=== PATIENT | female | born 1965 | race Caucasian/White ===

== ENCOUNTER 2018-06-24 06:14 | Inpatient (IN) ==
[2018-06-24] MEDS ORDERED: Estrogens Congugated Vag Cream w/app 30 GM Tube VAGINAL ONE (07:13)
[2018-06-24] MEDS ORDERED: Metoprolol Tartrate 25 MG Tablet PO SCH (07:30)
[2018-06-24] MEDS ORDERED: Sodium Chlor 0.9% Inj 500 ML IV.CONT PRN (07:30)
[2018-06-24] MEDS ORDERED: Bupivacaine/Epinephrine Inj 0.25% 50 ML Vial ONE (07:54)
[2018-06-24] MEDS ORDERED: Chlorhexidine Gluconate 2% 1 Pack (2 Cloths) TOPICAL ONE (08:00)
[2018-06-24] MEDS ORDERED: Phenylephrine/NS 1000 MCG/10ML Syringe IV.PUSH ONE (08:02)
[2018-06-24] MEDS ORDERED: Glycopyrrolate Inj 1 MG/5 ML Syringe IV.PUSH ONE (08:02)
[2018-06-24] MEDS ORDERED: Lidocaine PF 1% Inj 5 ML Syringe OTHER ONE (08:02)
[2018-06-24] MEDS ORDERED: Neostigmine Inj 5 MG/5 ML Syringe IV.PUSH ONE (08:02)
[2018-06-24] MEDS ORDERED: ceFAZolin 1 GM Premix Inj 1 GM/50 ML FROZ.PIGGY IV.SIG ONE (08:08)
[2018-06-24] MEDS ORDERED: HYDROmorphone PF Inj 2 MG/ML Vial ONE (09:12)
[2018-06-24] MEDS ORDERED: fentaNYL Citrate Inj 100 MCG/2 ML Ampul ONE (10:50)
[2018-06-24] MEDS ORDERED: Promethazine 25 MG Supp RECTAL PRN (11:16)
[2018-06-24] MEDS ORDERED: oxyCODONE/Acetaminophen 10/325 Tablet PO PRN (11:16)
--- NOTE | 2018-06-24 11:40 | P.OP ---
- Preoperative Diagnosis (1) Dyspareunia due to medical condition in female (2) Fibroid uterus (3) Menorrhagia with irregular cycle (4) Right lower quadrant abdominal pain - Postoperative Diagnosis (1) Endometriosis determined by laparoscopy (2) Dyspareunia due to medical condition in female (3) Fibroid uterus (4) Menorrhagia with irregular cycle (5) Right lower quadrant abdominal pain Postoperative Diagnosis: Pelvic adhesions of the colon to the posterior vaginal and cervical wall Date of procedure: 06/24/18 Procedure: Exam under anesthesia Laparoscopic examination Total abdominal hysterectomy bilateral salpingectomy Lysis of adhesions Coagulation of endometriosis Aspiration of right ovarian cyst Suspension of ovaries bilaterally Anesthesia: GETA Surgeon: Giuseppe Mason MD Estimated blood loss (mL): 250 Operation and Findings: Counts were correct Findings examination under anesthesia revealed a markedly enlarged uterus 16 weeks size freely mobile and very irregular Laparoscopic exam revealed a huge fibroid uterus with multiple fibroids. Some endometriosis in the posterior cul-de-sac and the colon was firmly adhesed to the posterior vaginal and cervical wall. Unable to visualize the uterine vessels due to the multiple fibroids. The tubes were normal in length and caliber the ovaries looked normal. Careful inspection of the right lower quadrant revealed No etiology for the right lower quadrant pain. There was a small right ovarian cyst 1 cm which was aspirated the left ovary was Normal. The GI system looks normal there was some scarring of the liver and the gallbladder looks normal. Procedure in detail Patient was taken to the operating theater and identified by name band and verbally she was given a general anesthetic placed in dorsal lithotomy position her arms were tucked and she was prepped and draped for laparoscopic surgery. A timeout was taken and we proceeded with an examination under anesthesia. Then an insertion of the Fisher catheter. A weighted speculum was placed in the vagina the anterior lip of the cervix was grasped with a single-tooth tenaculum the Hulka clamp was placed and attention was turned to the umbilical area. There were 2 subumbilical incisions and the uterus was large. I felt the uterus was enlarged because of possible scar tissue adhesion into the anterior abdominal wall therefore we can attempt to do this laparoscopically. The supra umbilical incision was made and with a 5 mm trocar the abdomen was entered without incident. A pneumoperitoneum was created with 3 L of CO2 the entire pelvis and abdomen were carefully inspected. Due to the endometriosis the scar tissue of the colon to the posterior vaginal cervical area and the inability to clearly visualize the uterine vessels due to the fibroids and the large size of the uterus we decided to proceed with laparotomy. The patient was taken out of dorsal lithotomy position reprepped and draped and the old Pfannenstiel incision which was quite low was removed the incision was taken down into the fascia was seen and small bleeders were coagulated with the Bovie once the fascia was taken down we opened the abdomen under direct vision and the air was released the incision was extended with care to avoid the urinary bladder. The round ligaments were then taken with 0 Vicryl pop offs. And the uterus was clamped along the broad ligaments the beginning of the bladder flap was created at this time the broad ligaments were taken down with a Nayely clamp in a clamp cut tie technique until the uterine vessels were obtained at the level of the internal cervical loss these were skeletonized and then the uterine vessels were taken with Amandeep clamps doubly tied stasis was excellent the cardinal ligament was then identified and the bladder was pushed out of harm's way again there is quite a bit of oozing at this point we used some chromic 3 to tie off these small bleeders that were on the bladder. Once this was accomplished and the bladder was out of harm's way we took down the cardinal ligament taking small bites with Jb's clamps. At this point the large bowel was firmly adhesed to the posterior cervical area and this was taken down by sharp dissection being very careful not to injure the bowel. Once we attained the vagina the vagina was sharply incised and the specimen was removed using Kam scissors. Awad sutures were placed at the lateral edges of the cuff and the cuff was closed using 0 Vicryl pop offs in a [id number] fashion. There was some more bleeding on the left side from the bladder and we placed another stitch with 3-0 chromic with excellent results. We consulted Dr. Serg Louis to come in and look at the bowel I felt it was okay but I wanted a general surgeon just to look at it he said it looked fine. At this point we removed the fallopian tubes being careful to stay far away from the ovary as possible then the ovaries were hanging quite low because they had been stretched because of the fibroid uterus we suspended the ovaries bilaterally with a 3-0 Vicryl to the pelvic sidewalls with excellent results at this point there was some oozing in the posterior cul-de-sac and anterior cul-de-sac and we used some Cici to stop the oozing once this had been accomplished with applied pressure for a few minutes and hemostasis was excellent. At this time we removed the self-retaining retractor and the lap pad and we reapproximated the rectus muscles with 0 Vicryl in a running fashion the fascia was repaired with 0 Vicryl from lateral to midline bilaterally in a running fashion and the subcu was repaired with a 3-0 Vicryl and the skin was repaired with a 4-0 Monocryl in a subcuticular manner pressure direct dressing was applied she tolerated the procedure well and went to the recovery room in good condition
[2018-06-24] MEDS ORDERED: Morphine Inj 4 MG/ML Vial ONE (11:42)
[2018-06-24] MEDS ORDERED: *morphine SULFATE 4 MG/ML PERIprocedure ONLY ONE ×2 (11:49→12:20)
[2018-06-24] MEDS ORDERED: *Ondansetron Inj 4 MG/2 ML Vial PERIprocedural Use ONLY ONE (11:59)
[2018-06-24] MEDS ORDERED: HYDROmorphone PF Inj 1 MG/ML Ampul ONE (12:43)
[2018-06-24] MEDS ORDERED: *HYDROmorphone PF Inj 1 MG/ML Ampul PERIprocedural Use ONLY ONE (13:13)
[2018-06-24] MEDS ORDERED: RIZATRIPTAN 10 MG PO PRN (13:30)
[2018-06-24] MEDS ORDERED: [UNRECOGNIZED DRUG - OTHER] PO PRN (13:30)
[2018-06-24] MEDS ORDERED: Naloxone Inj 0.4 MG/ML Vial IV.PUSH PRN (15:05)
[2018-06-24] MEDS ORDERED: HYDROmorphone PF Inj 1 MG/ML Ampul IV.PUSH ONE (15:15)
[2018-06-24] MEDS: Dicyclomine 10 MG Capsule PO SCH ×3 (15:17→21:57)
[2018-06-24] MEDS: HYDROmorphone PCA Inj 6 MG/30 ML PCA.VIAL PCA PRN (15:36)
[2018-06-24] MEDS ORDERED: Zolpidem Tartrate 5 MG Tablet PO PRN (21:00)
[2018-06-25 05:50] LABS: Baso % (Auto) 0.1 % (0.0-2.0); Eos % (Auto) 0.1 % (0.0-4.0); Hematocrit 23.6 % (35.0-46.0); Lymph # (Auto) 1.2 th/mm3 (1.0-4.8); Lymph % (Auto) 11.6 % (9.0-44.0); Mean Corpuscular Hemoglobin 29.2 pg (27.0-34.0); Mean Corpuscular Volume 85.8 fL (80.0-100.0); Mean Platelet Volume 7.1 fL (7.0-11.0); Mono % (Auto) 9.7 % (0.0-8.0); Neut # (Auto) 8.3 th/mm3 (1.8-7.7); Neut % (Auto) 78.5 % (16.0-70.0); Platelet Count 172 th/mm3 (150-450); Red Blood Count 2.75 mil/mm3 (4.00-5.30); Red Cell Distribution Width 13.3 % (11.6-17.2); White Blood Count 10.6 th/mm3 (4.0-11.0)
[2018-06-25 06:09] LABS: Glomerular Filtration Rate Greater Than 89 mL/min (>89); Potassium 3.8 meq/L (3.5-5.1)
[2018-06-25] MEDS: HYDROmorphone PCA Inj 6 MG/30 ML PCA.VIAL PCA PRN (06:38)
[2018-06-25] MEDS: Dicyclomine 10 MG Capsule PO SCH ×4 (08:07→20:32)
--- NOTE | 2018-06-25 10:28 | P.PNOB ---
Assessment and Plan (1) S/P LIZ-BSO Status: Acute Assessment and plan: POD #1 pt didn't sleep well last night, conflict with ordered medication this is now resolved, rest encouraged pt's BP low last night but was asymptomatic therefore has been reluctant to use product grader as ordered, pt encouraged that she should use it to managed pain c/o nausea this am, Phenergan ordered with sips of fluid incentive spirometer encouraged pt encouraged to ambulate within the room routine PO care - Postoperative Procedures Operation Date: 06/24/18 08:02 Actual Procedures Side Surgeon p TOTAL ABDOMINAL HYSTERECTOMY WITH BILATERAL SALPINGECTOMY, LYSIS OF ADHESION, COAGULATION OF ENDOMETRIOSIS, SUSPENSION OF OVARIES, ASPIRATION OF RIGHT OVARIAN CYST Bilateral Giuseppe Crockett MD s LAPAROSCOPIC EXAM Giuseppe Crockett MD Postoperative day: 1 Postoperative status: marginal pain control Postoperative plan: routine post-op care - Time Spent With Patient Total time spent is greater than 50% in coordination of care (as documented) at patient's floor/unit and/or counseling patient: less than 15 minutes Subjective Subjective: patient reports nausea, pain not well controlled Physical Exam Vital signs: Temp Pulse Resp BP Pulse Ox 98 F 80 16 104/66 99 06/25/18 08:00 06/25/18 08:00 06/25/18 08:06 06/25/18 08:00 06/25/18 08:00 - Constitutional mild distress Comments: pt painful not using product grader as directed, concerned her bp was too low - Routine Respiratory Exam Present: CTA bilaterally - Routine Abdominal Exam Present: soft, normoactive bowel sounds, tenderness Comments: dressing CDI - Detailed Neurological Exam: Coma Scale Eye Opening: Spontaneous Verbal Response: Oriented (clear urine) - Additional findings exam by dr crockett - Urinary Catheter Management Indwelling Urethral Catheter Cath placed during this visit: yes Urethral indwelling: Yes Reason for Continuing: Other continuation reason (due to nature of surgery) Insertion date: 06/24/18 Insertion time: 08:48 Results - Labs CBC & Chem 7: 06/25/18 05:04 06/25/18 05:04 Labs: Laboratory Results - last 24 hr 06/25/18 06/25/18 05:04 05:04 WBC 10.6 RBC 2.75 L Hgb 8.0 L Hct 23.6 L MCV 85.8 MCH 29.2 MCHC 34.0 RDW 13.3 Plt Count 172 D MPV 7.1 Neut % (Auto) 78.5 H Lymph % (Auto) 11.6 Gaines % (Auto) 9.7 H Eos % (Auto) 0.1 Baso % (Auto) 0.1 Neut # (Auto) 8.3 H Lymph # (Auto) 1.2 Gaines # (Auto) 1.0 H Eos # (Auto) 0.0 Baso # (Auto) 0.0 WBC Differential . Differential Comment Auto diff final Potassium 3.8 Creatinine 0.41 L Estimated GFR Greater than 89
[2018-06-25] MEDS: Butalbital/APAP/Caff 50/325/40 MG Tablet PO PRN ×2 (12:29→18:41)
[2018-06-25] MEDS: Ibuprofen 600 MG Tablet PO PRN (18:26)
[2018-06-25] MEDS: Temazepam 15 MG Capsule PO SCH (21:40)
[2018-06-26] MEDS: Ibuprofen 600 MG Tablet PO PRN ×2 (00:28→08:49)
[2018-06-26] MEDS: Dicyclomine 10 MG Capsule PO SCH ×4 (08:46→21:58)
[2018-06-26] MEDS ORDERED: Morphine Sulfate Inj 2 MG/ML Vial IV.PUSH STA (09:15)
[2018-06-26] MEDS: Morphine Sulfate Inj 2 MG/ML Vial IV.PUSH PRN ×2 (11:42→14:15)
[2018-06-26] MEDS: Butalbital/APAP/Caff 50/325/40 MG Tablet PO PRN ×2 (11:46→18:36)
--- NOTE | 2018-06-26 14:56 | P.PNOB ---
Assessment and Plan - Postoperative Procedures Operation Date: 06/24/18 08:02 Actual Procedures Side Surgeon p TOTAL ABDOMINAL HYSTERECTOMY WITH BILATERAL SALPINGECTOMY, LYSIS OF ADHESION, COAGULATION OF ENDOMETRIOSIS, SUSPENSION OF OVARIES, ASPIRATION OF RIGHT OVARIAN CYST Bilateral Giuseppe Mason MD s LAPAROSCOPIC EXAM Giuseppe Mason MD POD #2 Severe anemia due to blood loss in surgery. Will check H/H in the am. Will start some venofer Migrane headache. Will give some IV meds now and hold off on po as she is quite nauseated. Dehydration as she is so nauseated unable to tolerate po fluids. will start some IV fluids. - Time Spent With Patient Total time spent is greater than 50% in coordination of care (as documented) at patient's floor/unit and/or counseling patient: Subjective Interval history: Doing ok, Having a migrane this am. Now with nausea due to severe headache. Taking pain meds positive flatus. Physical Exam Vital signs: Temp Pulse Resp BP Pulse Ox 98.7 F 92 H 16 106/60 95 06/26/18 11:40 06/26/18 11:40 06/26/18 11:40 06/26/18 11:40 06/26/18 11:40 - Constitutional mild distress - Routine Respiratory Exam Present: CTA bilaterally - Routine Cardiovascular Exam Present: RRR, S1, S2 - Routine Abdominal Exam Present: soft, tenderness - Urinary Catheter Management Indwelling Urethral Catheter Cath placed during this visit: yes, but has since been removed by the nurse Urethral indwelling: No Insertion date: 06/24/18 Insertion time: 08:48 Removal date: 06/25/18 Removal time: 14:00 Results - Labs CBC & Chem 7: 06/25/18 05:04 06/25/18 05:04
[2018-06-26] MEDS: Iron Sucrose Inj 200 MG in Sodium Chlor 0.9% Inj 100 ML IV.SIG SCH (17:08)
[2018-06-26] MEDS: Temazepam 15 MG Capsule PO SCH (21:58)
[2018-06-27] MEDS: RIZATRIPTAN 10 MG PO PRN ×2 (04:03→19:38)
[2018-06-27] MEDS: [UNRECOGNIZED DRUG - OTHER] PO PRN ×2 (04:03→19:38)
[2018-06-27 06:36] LABS: Baso % (Auto) 0.4 % (0.0-2.0); Eos # (Auto) 0.1 th/mm3 (0.0-0.4); Eos % (Auto) 1.2 % (0.0-4.0); Hematocrit 21.2 % (35.0-46.0); Hemoglobin 7.2 gm/dL (11.6-15.3); Lymph # (Auto) 1.3 th/mm3 (1.0-4.8); Lymph % (Auto) 19.7 % (9.0-44.0); Mean Corpuscular HGB Conc 33.8 % (32.0-36.0); Mean Corpuscular Hemoglobin 29.2 pg (27.0-34.0); Mean Corpuscular Volume 86.4 fL (80.0-100.0); Mean Platelet Volume 6.6 fL (7.0-11.0); Mono # (Auto) 0.7 th/mm3 (0.0-0.9); Mono % (Auto) 10.1 % (0.0-8.0); Neut # (Auto) 4.6 th/mm3 (1.8-7.7); Neut % (Auto) 68.6 % (16.0-70.0); Platelet Count 160 th/mm3 (150-450); Red Blood Count 2.46 mil/mm3 (4.00-5.30); Red Cell Distribution Width 12.8 % (11.6-17.2); White Blood Count 6.7 th/mm3 (4.0-11.0)
[2018-06-27] MEDS: Dicyclomine 10 MG Capsule PO SCH ×4 (11:03→21:39)
--- NOTE | 2018-06-27 14:13 | P.PNOB ---
Assessment and Plan - Postoperative Procedures Operation Date: 06/24/18 08:02 Actual Procedures Side Surgeon p TOTAL ABDOMINAL HYSTERECTOMY WITH BILATERAL SALPINGECTOMY, LYSIS OF ADHESION, COAGULATION OF ENDOMETRIOSIS, SUSPENSION OF OVARIES, ASPIRATION OF RIGHT OVARIAN CYST Bilateral Giuseppe Mason MD s LAPAROSCOPIC EXAM Giuseppe Mason MD POD #3 Severe anemia will continue venofer and check her cbc in the am she is not ready for discharge. Will consider d/c in the am Migrane headache she will continue the meds from home since we do not carry it here. - Time Spent With Patient Total time spent is greater than 50% in coordination of care (as documented) at patient's floor/unit and/or counseling patient: Subjective Subjective: patient reports feeling better, patient has no complaints, pain is well controlled, patient is tolerating oral intake (doiong better today, headache is better but still feeling wimpy.) Physical Exam Vital signs: Temp Pulse Resp BP Pulse Ox 98.7 F 83 18 114/56 L 97 06/27/18 12:25 06/27/18 12:25 06/27/18 12:25 06/27/18 12:25 06/27/18 12:25 - Constitutional no acute distress - Routine Respiratory Exam Present: CTA bilaterally - Routine Cardiovascular Exam Present: RRR, S1, S2 - Routine Abdominal Exam Present: soft, normoactive bowel sounds Comments: surgically tender over the incision - Urinary Catheter Management Indwelling Urethral Catheter Cath placed during this visit: yes, but has since been removed by the nurse Urethral indwelling: No Insertion date: 06/24/18 Insertion time: 08:48 Removal date: 06/25/18 Removal time: 14:00 Results - Labs CBC & Chem 7: 06/27/18 06:05 06/25/18 05:04 Labs: Laboratory Results - last 24 hr 06/27/18 06:05 WBC 6.7 RBC 2.46 L Hgb 7.2 L Hct 21.2 L MCV 86.4 MCH 29.2 MCHC 33.8 RDW 12.8 Plt Count 160 MPV 6.6 L Neut % (Auto) 68.6 Lymph % (Auto) 19.7 Josephine % (Auto) 10.1 H Eos % (Auto) 1.2 Baso % (Auto) 0.4 Neut # (Auto) 4.6 Lymph # (Auto) 1.3 Josephine # (Auto) 0.7 Eos # (Auto) 0.1 Baso # (Auto) 0.0 WBC Differential . Differential Comment Auto diff final
[2018-06-27] MEDS: Iron Sucrose Inj 200 MG in Sodium Chlor 0.9% Inj 100 ML IV.SIG SCH (15:15)
[2018-06-27] MEDS: Butalbital/APAP/Caff 50/325/40 MG Tablet PO PRN (19:27)
[2018-06-27] MEDS: Temazepam 15 MG Capsule PO SCH (21:38)
[2018-06-28 03:12] VITALS: O2SAT 94
[2018-06-28 06:13] LABS: Hematocrit 21.1 % (35.0-46.0); Hemoglobin 7.2 gm/dL (11.6-15.3); Mean Corpuscular HGB Conc 34.1 % (32.0-36.0); Mean Corpuscular Hemoglobin 29.2 pg (27.0-34.0); Mean Corpuscular Volume 85.6 fL (80.0-100.0); Mean Platelet Volume 6.1 fL (7.0-11.0); Platelet Count 160 th/mm3 (150-450); Red Blood Count 2.46 mil/mm3 (4.00-5.30); Red Cell Distribution Width 13.1 % (11.6-17.2); White Blood Count 5.3 th/mm3 (4.0-11.0)
[2018-06-28] MEDS: RIZATRIPTAN 10 MG PO PRN ×2 (10:17→12:40)
[2018-06-28] MEDS: [UNRECOGNIZED DRUG - OTHER] PO PRN ×2 (10:17→12:40)
[2018-06-28 11:11] VITALS: RESP 16
[2018-06-28] MEDS: Dicyclomine 10 MG Capsule PO SCH ×2 (11:36→15:40)
--- NOTE | 2018-06-28 12:36 | P.PNOB ---
Assessment and Plan - Postoperative Procedures Operation Date: 06/24/18 08:02 Actual Procedures Side Surgeon p TOTAL ABDOMINAL HYSTERECTOMY WITH BILATERAL SALPINGECTOMY, LYSIS OF ADHESION, COAGULATION OF ENDOMETRIOSIS, SUSPENSION OF OVARIES, ASPIRATION OF RIGHT OVARIAN CYST Bilateral Giuseppe Mason MD s LAPAROSCOPIC EXAM Giuseppe Mason MD POD #4 Migrane headaches.. discussed the possibility of blood transfusion in detail Severe anemia due to acute blood loss. The H/H is stable and she is not bleeding. She has had her venofer and will check her cbc later. Tongue is very tender will try some oragel to see if that would help. The magic mouthwash has not been effective in the past. - Time Spent With Patient Total time spent is greater than 50% in coordination of care (as documented) at patient's floor/unit and/or counseling patient: Subjective Interval history: Doing ok, Having a migrane this am. Now with a headache. Taking pain meds positive flatus. No chest pain or pressure. No SOB. My tongue is on fire. This happened before and my doctor and dentist sent me to numerous doctors and no one could figure it out. I have to be careful what I eat or it will really hurt. I'm ok to go home. Subjective: patient reports feeling better, pain is well controlled, patient is tolerating oral intake, flatus Physical Exam Vital signs: Temp Pulse Resp BP Pulse Ox 98 F 94 H 16 120/66 94 L 06/28/18 11:10 06/28/18 11:10 06/28/18 11:10 06/28/18 11:10 06/28/18 07:59 - Constitutional no acute distress - Routine Respiratory Exam Present: CTA bilaterally - Routine Cardiovascular Exam Present: RRR, S1, S2 - Routine Abdominal Exam Present: soft, normoactive bowel sounds - Urinary Catheter Management Indwelling Urethral Catheter Cath placed during this visit: yes, but has since been removed by the nurse Urethral indwelling: No Insertion date: 06/24/18 Insertion time: 08:48 Removal date: 06/25/18 Removal time: 14:00 Results - Labs CBC & Chem 7: 06/28/18 06:10 06/25/18 05:04 Labs: Laboratory Results - last 24 hr 06/28/18 06:10 WBC 5.3 RBC 2.46 L Hgb 7.2 L Hct 21.1 L MCV 85.6 MCH 29.2 MCHC 34.1 RDW 13.1 Plt Count 160 MPV 6.1 L
[2018-06-28] MEDS ORDERED: Iron Sucrose Inj 200 MG in Sodium Chlor 0.9% Inj 100 ML IV.SIG SCH (14:00)
[2018-06-28] MEDS: Iron Sucrose Inj 200 MG in Sodium Chlor 0.9% Inj 100 ML IV.SIG SCH (15:03)
[2018-06-28 15:46] VITALS: BP 121/63; PULSE 88; TEMP 98.9
== END 2018-06-28 16:25 | disposition home or self-care (01) ==
LOC: HSDI 06:14 → H1EA 14:22
PROVIDERS: ADMIT Obstetrics & Gynecology; ATTEND Obstetrics & Gynecology

== ENCOUNTER 2018-07-05 10:33 | Observation (INO) ==
[2018-07-05] MEDS ORDERED: Sod Chloride 0.9% Inj 1,000 ML IV.CONT SCH (11:00)
--- NOTE | 2018-07-05 11:01 | ED ---
HPI General Chief complaint: MOLDING TECHNICIAN Stated complaint: vaginal bleeding Time Seen by Provider: 07/05/18 10:40 Source: patient Mode of arrival: ambulatory Limitations: no limitations History of Present Illness HPI Narrative: The patient is a 53-year-old female who presents to the emergency department for vaginal bleeding. The patient is status post total abdominal hysterectomy sparing the ovaries, performed on June 21, 2018 by her gynecologic surgeon, Dr. Mason. The patient states she had her uterus removed secondary to enlarged fibroids, dyspareunia, and vaginal bleeding. The patient states the fibroid was too large to go transvaginal and laparoscopically , therefore, she had a transverse lower abdominal incision performed to remove the uterus. The patient does note a small amount of light vaginal bleeding since the surgery, approximately 6 pads per day. However, the patient developed lower abdominal cramping last night and significant increase of bleeding this morning. The patient states this morning slightly after 5 AM she noticed the passage of a large blood clot via the vagina. She then had several more episodes of passing large blood clots and increasing vaginal bleeding. The patient spoke with the on-call physician for her engineering technician parking who advised her to come to the emergency department. The patient does have a history of anemia, hemoglobin was 7.2 prior to surgery, she received iron infusions but no packed red blood cells. She denies any significant abdominal pain currently, but does note the vaginal bleeding has progressed. MD Complaint: Reports vaginal bleeding Onset (ago): day(s) Location: Reports suprapubic Female Urogenital Radiation: Reports Non-Radiating Severity: moderate Severity scale (1-10): 6 Quality: Cramping Duration: intermittent Relieving factors: none Exacerbating factors: other Vaginal discharge: Reports dark blood and blood clots Patient : No Associated symptoms: Reports abdominal pain Related Data Home Medications Medication Instructions Recorded Confirmed sslofabcza-psjakbcrdv-sfl-cod 2 cap PO Q4H PRN 06/17/18 07/05/18 dicyclomine 10 mg PO QID 06/17/18 07/05/18 rizatriptan 10 mg PO Q2-4H PRN 06/17/18 07/05/18 temazepam 1 cap PO HS 06/17/18 07/05/18 Allergies Allergy/AdvReac Type Severity Reaction Status Date / Time No Known Allergies Allergy Verified 11/04/18 10:49 Review of Systems ROS: all other systems reviewed are negative [facility] Social History Social History Second Hand Smoke Exposure: No Smoking Status: Never smoker How Often Do You Have a Drink Containing Alcohol: 2 to 4 times a month Recent Travel in [facility] within the Last 8 Weeks: No Recent Out of Country Travel within the Last 8 Weeks: No Immunization History Tetanus Immunization: Unsure Exam Narrative Exam Narrative: GENERAL: Awake, alert, pleasant 53-year-old female who appears her stated age and is in no acute respiratory distress. SKIN: Focused skin assessment warm/dry. HEAD: Atraumatic. Normocephalic. EYES: Pupils equal and round. No scleral icterus. No injection or drainage. ENT: No nasal bleeding or discharge. Mucous membranes pink and moist. NECK: Trachea midline. No JVD. CARDIOVASCULAR: Regular, tachycardic with a heart rate of 110. RESPIRATORY: No accessory muscle use. Clear to auscultation. Breath sounds equal bilaterally. GASTROINTESTINAL: Abdomen soft, healing lower abdominal transverse scar with no visible bleeding or drainage. No guarding or rigidity. No distention noted. Pelvic: The exam was performed in the presence of a female nurse. External examination reveals blood at the introitus. Speculum examination reveals several large blood clots in the vaginal vault which were removed with Krista forceps and rm swabs. Krista forceps with 4 x 4's was then used to take the blood off of the vaginal dejesus. There appeared to be some venous type bleeding from the 3 o'clock position of the vaginal vault as well as small amount of bleeding at the central area in the posterior cuff. MUSCULOSKELETAL: No obvious deformities. No clubbing. No cyanosis. No edema. NEUROLOGICAL: Awake and alert. No obvious cranial nerve deficits. Motor grossly within normal limits. Normal speech. PSYCHIATRIC: Appropriate mood and affect; insight and judgment normal. Course Initial Documented Vital Signs Temperature 98.1 F 07/05/18 10:35 Pulse Rate 113 H 07/05/18 10:35 Respiratory Rate 16 07/05/18 10:35 Blood Pressure 121/83 07/05/18 10:35 Pulse Oximetry 100 07/05/18 10:35 Last Documented Vital Signs Temperature 98.1 F 07/05/18 10:35 Pulse Rate 87 07/05/18 12:56 Respiratory Rate 18 07/05/18 12:56 Blood Pressure 101/58 L 07/05/18 12:56 Pulse Oximetry 97 07/05/18 12:56 Medical Decision Making MDM Narrative Medical decision making narrative: IV was established, labs are drawn and sent, and the patient was placed on cardiac telemetry monitoring and continuous pulse oximetry monitoring. Type and screen was performed, CBC was sent to lab. A pelvic exam was completed in the presence of a female nurse. Pelvic exam does reveal small amount of bleeding from the 3 o'clock position of the vaginal vault. Several clots were removed with Rm swabs and Krista forceps. It appeared to be venous type oozing, there is no obvious arterial pulsations. There also was a small amount of bleeding in the central area of the cough, but no significant oozing was noted from that position. I discussed the patient with the on-call engineering technician parking for Dr. Mason, Dr. Mansfield, who request that the in-house MUSIC INDUSTRY INTERN physician evaluate the patient. I discussed the patient with Dr. Del Valle who will evaluate the patient in the emergency department. Medical Screen Exam Complete: Yes Emergency Medical Condition: Yes Differential Diagnosis Differential Diagnosis: Differential diagnosis includes postoperative bleeding, hemorrhagic shock, symptomatic anemia, postoperative hematoma, postoperative complication. Lab Data Result diagrams: 07/05/18 11:03 07/05/18 11:03 Lab Results 07/05/18 07/05/18 07/05/18 Range/Units 11:03 11:03 11:03 WBC 10.3 (4.0-11.0) th/mm3 RBC 3.69 L (4.00-5.30) mil/mm3 Hgb 11.1 L (11.6-15.3) gm/dL Hct 32.5 L (35.0-46.0) % MCV 88.0 (80.0-100.0) fL MCH 30.1 (27.0-34.0) pg MCHC 34.1 (32.0-36.0) % RDW 14.2 (11.6-17.2) % Plt Count 349 D (150-450) th/mm3 MPV 6.0 L (7.0-11.0) fL Neut % (Auto) 80.2 H (16.0-70.0) % Lymph % (Auto) 13.2 (9.0-44.0) % [place] % (Auto) 6.0 (0.0-8.0) % Eos % (Auto) 0.3 (0.0-4.0) % Baso % (Auto) 0.3 (0.0-2.0) % Neut # (Auto) 8.2 H (1.8-7.7) th/mm3 Lymph # (Auto) 1.4 (1.0-4.8) th/mm3 [place] # (Auto) 0.6 (0.0-0.9) th/mm3 Eos # (Auto) 0.0 (0.0-0.4) th/mm3 Baso # (Auto) 0.0 (0.0-0.2) th/mm3 WBC Differential . Differential Comment Auto diff final PT 10.6 (9.8-11.6) sec INR 1.0 Ratio APTT 26.4 (23.4-31.7) sec Sodium (136-145) meq/L Potassium (3.5-5.1) meq/L Chloride (98-107) meq/L Carbon Dioxide (21.0-32.0) meq/L Anion Gap (5-15) meq/L BUN (7-18) mg/dL Creatinine (0.50-1.00) mg/dL Estimated GFR (>89) mL/min Random Glucose (74-106) mg/dL Calcium (8.5-10.1) mg/dL Magnesium (1.5-2.5) mg/dL Total Bilirubin (0.2-1.0) mg/dL AST (15-37) U/L ALT (10-53) U/L Alkaline Phosphatase (45-117) U/L Total Protein (6.4-8.2) g/dL Albumin (3.4-5.0) g/dL Urine Color (Yellw/Straw) Urine Clarity (Clear) Urine pH (5.0-8.5) Ur Specific [place] (1.002-1.035) Urine Protein (Neg-Trace) mg/dL Urine Glucose (UA) (Negative) mg/dL Urine Ketones (Negative) mg/dL Urine Occult Blood (Negative) Urine Nitrate (Negative) Urine Bilirubin (Negative) Urine Urobilinogen (Less than 2) mg/dL Ur Leukocyte Esterase (Negative) Urine RBC (0-3) /hpf Urine WBC (0-5) /hpf Urine Bacteria (None) /hpf Urine Mucus (Occasional) /lpf Micro UA Comment Ur Microscopic Review Urine Culture Comments Blood Type O Positive Blood Type Recheck Not needed Antibody Screen Positive H Antibody Identification MTS Gel Crossmatch See Detail 07/05/18 07/05/18 07/05/18 Range/Units 11:03 11:09 12:46 WBC (4.0-11.0) th/mm3 RBC (4.00-5.30) mil/mm3 Hgb (11.6-15.3) gm/dL Hct (35.0-46.0) % MCV (80.0-100.0) fL MCH (27.0-34.0) pg MCHC (32.0-36.0) % RDW (11.6-17.2) % Plt Count (150-450) th/mm3 MPV (7.0-11.0) fL Neut % (Auto) (16.0-70.0) % Lymph % (Auto) (9.0-44.0) % [place] % (Auto) (0.0-8.0) % Eos % (Auto) (0.0-4.0) % Baso % (Auto) (0.0-2.0) % Neut # (Auto) (1.8-7.7) th/mm3 Lymph # (Auto) (1.0-4.8) th/mm3 [place] # (Auto) (0.0-0.9) th/mm3 Eos # (Auto) (0.0-0.4) th/mm3 Baso # (Auto) (0.0-0.2) th/mm3 WBC Differential Differential Comment PT (9.8-11.6) sec INR Ratio APTT (23.4-31.7) sec Sodium 138 (136-145) meq/L Potassium 3.8 (3.5-5.1) meq/L Chloride 103 (98-107) meq/L Carbon Dioxide 25.3 (21.0-32.0) meq/L Anion Gap 10 (5-15) meq/L BUN 21 H (7-18) mg/dL Creatinine 0.58 (0.50-1.00) mg/dL Estimated GFR Greater than 89 (>89) mL/min Random Glucose 114 H (74-106) mg/dL Calcium 8.8 (8.5-10.1) mg/dL Magnesium 2.1 (1.5-2.5) mg/dL Total Bilirubin 0.4 (0.2-1.0) mg/dL AST 20 (15-37) U/L ALT 39 (10-53) U/L Alkaline Phosphatase 101 (45-117) U/L Total Protein 8.0 (6.4-8.2) g/dL Albumin 4.0 (3.4-5.0) g/dL Urine Color Red H (Yellw/Straw) Urine Clarity Cloudy H (Clear) Urine pH 8.0 (5.0-8.5) Ur Specific [place] 1.015 (1.002-1.035) Urine Protein 500 or greater (Neg-Trace) mg/dL Urine Glucose (UA) Negative (Negative) mg/dL Urine Ketones Negative (Negative) mg/dL Urine Occult Blood Large H (Negative) Urine Nitrate Positive H (Negative) Urine Bilirubin Negative (Negative) Urine Urobilinogen Less than 2 (Less than 2) mg/dL Ur Leukocyte Esterase Negative (Negative) Urine RBC (0-3) /hpf Urine WBC 15 H (0-5) /hpf Urine Bacteria Many H (None) /hpf Urine Mucus Many H (Occasional) /lpf Micro UA Comment Culture indicated Ur Microscopic Review Not Reportable Urine Culture Comments Culture indicated Blood Type Blood Type Recheck Antibody Screen Antibody Identification Non-Specific Agglutinin MTS Gel Crossmatch Discharge Plan Discharge Disposition Patient Disposition: 30 Still Patient Discharge Condition Condition: Stable Discharge Details Diagnosis: Postoperative vaginal bleeding Physicians Team ED Provider: Wicho Amezquita Primary Care Provider: Brian Robert Rxs /Orders / Referrals /Forms Prescriptions: No Action rizatriptan 10 mg Tablet 10 mg PO Q2-4H PRN (Reason: migraine) RF: 0 temazepam 30 mg Capsule 1 cap PO HS RF: 0 escnhdbhkc-pyuyhvylfr-pux-cod [id number] mg Capsule 2 cap PO Q4H PRN (Reason: Migraine Headache) RF: 0 dicyclomine 10 mg Capsule 10 mg PO QID RF: 0 Discharge Interventions Interventions: Vital Signs Last Done: 07/05/18 12:56 Status ED Status: Medically Cleared
[2018-07-05] MEDS ORDERED: Morphine Sulfate Inj 2 MG/ML Vial IV.PUSH ONE (11:21)
[2018-07-05 11:31] LABS: Baso % (Auto) 0.3 % (0.0-2.0); Eos % (Auto) 0.3 % (0.0-4.0); Hematocrit 32.5 % (35.0-46.0); Hemoglobin 11.1 gm/dL (11.6-15.3); Lymph # (Auto) 1.4 th/mm3 (1.0-4.8); Lymph % (Auto) 13.2 % (9.0-44.0); Mean Corpuscular HGB Conc 34.1 % (32.0-36.0); Mean Corpuscular Hemoglobin 30.1 pg (27.0-34.0); Mono # (Auto) 0.6 th/mm3 (0.0-0.9); Neut # (Auto) 8.2 th/mm3 (1.8-7.7); Neut % (Auto) 80.2 % (16.0-70.0); Platelet Count 349 th/mm3 (150-450); Red Blood Count 3.69 mil/mm3 (4.00-5.30); Red Cell Distribution Width 14.2 % (11.6-17.2); White Blood Count 10.3 th/mm3 (4.0-11.0)
[2018-07-05 11:41] LABS: Activated Partial Thrombo Time 26.4 sec (23.4-31.7); Prothrombin Time 10.6 sec (9.8-11.6)
[2018-07-05 11:45] LABS: Bacteria,Urine Many /hpf; Bilirubin,Urine Negative (Negative); Glucose,Urine (UA) Negative (Negative); Leukocyte Esterase,Urine Negative (Negative); Mucus,Urine Many /lpf (Occasional); Nitrite,Urine Positive (Negative); Specific Gravity,Urine 1.015 (1.002-1.035)
[2018-07-05 11:47] LABS: Clarity,Urine Cloudy (Clear); Color,Urine Red (Yellw/Straw)
[2018-07-05 11:57] LABS: Anion Gap 10 meq/L (5-15); Aspartate Aminotransferase 20 U/L (15-37); Blood Urea Nitrogen 21 mg/dL (7-18); Calcium 8.8 mg/dL (8.5-10.1); Carbon Dioxide 25.3 meq/L (21.0-32.0); Chloride 103 meq/L (98-107); Glomerular Filtration Rate Greater Than 89 mL/min (>89); Glucose,Random 114 mg/dL (74-106); Magnesium 2.1 mg/dL (1.5-2.5); Potassium 3.8 meq/L (3.5-5.1); Sodium 138 meq/L (136-145)
[2018-07-05 12:00] LABS: Alanine Aminotransferase 39 U/L (10-53); Alkaline Phosphatase 101 U/L (45-117)
--- NOTE | 2018-07-05 13:29 | P.CONOB ---
History of Present Illness - Data of Consult Primary Care Provider: MD Dr. Isabella Franklin - Consult Narrative Reason for consult: vaginal bleeding Narrative: Natalie Meeks is a 53 year old female Patient is 2 weeks out from a LIZ/BSO for 16-week fibroids by Dr. Mason. She is done well postoperatively until today when she at 5 AM noticed a large amount of vaginal bleeding and has had continued large passage of clots and vaginal bleeding since. I was called to see the patient for evaluation. Exam--patient's abdomen is flat nontender her Pfannenstiel incisions well- healed. Vaginally patient has blood smeared on the external genitalia and legs looking with speculum in the vagina is full of red blood clot and fresh flowing blood. Q-tips used to clean out the majority of blood clot blood and I could visualize the upper vagina but cannot see the actual bleeding spot discomfort to the patient. Bimanual exam reveals a possible defect in the right cuff area that may be breakdown. Impression--post hysterectomy vaginal cuff bleeding Plan--patient needs exam under anesthesia and possibly revision of the cuff on the right side, discussed the case with Dr. Mansfield is covering for Dr. Mason and she will arrange the patient to go to the operating room for evaluation. [facility] - History History Provided By: Patient - Medical History Medical History: Medical History (Last Reviewed 07/05/18 @ 10:50 by Natalie Banerjee) Heavy menses History of anesthesia reaction IBS (irritable bowel syndrome) Insomnia Migraines Painful menstrual flow - Surgical History Surgical History: Surgical History (Last Reviewed 07/05/18 @ 10:50 by Natalie Banerjee) H/O breast biopsy H/O colonoscopy H/O right knee surgery History of dental surgery Previous section S/P LASIK surgery of both eyes - Tobacco History Second Hand Smoke Exposure: No Smoking Status: Never smoker - Alcohol History How Often Do You Have a Drink Containing Alcohol: 2 to 4 times a month - Travel History Recent Travel in the [place] Within the Last 8 Weeks: No Recent Travel Out of the Country Within the Last 8 Weeks: No - Immunization History Tetanus Immunization: Unsure Medications and Allergies Active Medications: Active Medications Sodium Chloride (Ns Inj) 1,000 mls @ 125 mls/hr IV.CONT .Q8H PRIYA Stop: 07/05/18 18:59 Last Admin: 07/05/18 11:35 Dose: 125 mls/hr Sodium Chloride (Ns Flush) 2 ml IV.FLUSH PRN PRN PRN Reason: FLUSH AFTER USING IV ACCESS Allergies Allergy/AdvReac Type Severity Reaction Status Date / Time No Known Allergies Allergy Verified 07/05/18 10:49 Home Medications Medication Instructions Recorded Confirmed Type uzfncchqug-ozrusiacvz-xfe-cod 2 cap PO Q4H PRN 06/17/18 07/05/18 History dicyclomine 10 mg PO QID 06/17/18 07/05/18 History rizatriptan 10 mg PO Q2-4H PRN 06/17/18 07/05/18 History temazepam 1 cap PO HS 06/17/18 07/05/18 History Physical Exam Vital signs: Temp Pulse Resp BP Pulse Ox 98.1 F 87 18 101/58 L 97 07/05/18 10:35 07/05/18 12:56 07/05/18 12:56 07/05/18 12:56 07/05/18 12:56 Results - Labs CBC & Chem 7: 07/05/18 11:03 07/05/18 11:03 Labs: Short CBC 07/05/18 Range/Units 11:03 WBC 10.3 (4.0-11.0) th/mm3 Hgb 11.1 L (11.6-15.3) gm/dL Hct 32.5 L (35.0-46.0) % Plt Count 349 D (150-450) th/mm3 BMP 07/05/18 11:03 Sodium 138 Potassium 3.8 Chloride 103 Carbon Dioxide 25.3 BUN 21 H Creatinine 0.58 Calcium 8.8 Liver Function 07/05/18 Range/Units 11:03 Total Bilirubin 0.4 (0.2-1.0) mg/dL AST 20 (15-37) U/L ALT 39 (10-53) U/L Alkaline Phosphatase 101 (45-117) U/L Albumin 4.0 (3.4-5.0) g/dL Urine 07/05/18 Range/Units 11:09 Urine Color Red H (Yellw/Straw) Urine Clarity Cloudy H (Clear) Urine pH 8.0 (5.0-8.5) Ur Specific [place] 1.015 (1.002-1.035) Urine Protein 500 or greater (Neg-Trace) mg/dL Urine Glucose (UA) Negative (Negative) mg/dL
--- NOTE | 2018-07-05 14:31 | P.HPOB ---
History of Present Illness Reason for admission: vaginal bleeding Narrative: Natalie Meeks is a 53 year old female who underwent LIZ for fibroids, endometriosis and adhesions with menorrghagia on 06/24/18 by Isabella and was doing well with some dark bleeding that was painless daily (thinking this was normal) until developed lower abdominal pain last night and then bleeding with clots this early am. It has continued to flow freely and clot since that time. Arrived to ED and seen by Dr. Amezquita and then Dr. Del Valle while I came up from [facility]. Consensus is that there is on going bleeding from the right corner of the cuff. It is hope that this is cuff bleeding and amenable to cuff revision. She denies pain. She is not yet dizzy or nauseous. Has not eaten yet today. No fever. Has irritable bowel syndrome and takes dicylcomine to have routine bowels and has moved her bowels 5 times since surgery. Thought pain last night GI related. Prior surgeries were stat section for previa with transfusion several lscopes in past this open case on the preceded by an lscope to determine if amenable to minimally invasive techniques. Several knee surgeries and breast biopsies Does not smoke or drink Review of Systems All other systems reviewed negative except as stated in HPI PMFSH - History History Provided By: Patient - Medical History Medical History: Medical History (Last Reviewed 07/05/18 @ 10:50 by Natalie Banerjee) Heavy menses History of anesthesia reaction IBS (irritable bowel syndrome) Insomnia Migraines Painful menstrual flow - Surgical History Surgical History: Surgical History (Last Reviewed 07/05/18 @ 10:50 by Natalie Banerjee) H/O breast biopsy H/O colonoscopy H/O right knee surgery History of dental surgery Previous section S/P LASIK surgery of both eyes - Tobacco History Second Hand Smoke Exposure: No Smoking Status: Never smoker - Alcohol History How Often Do You Have a Drink Containing Alcohol: 2 to 4 times a month - Travel History Recent Travel in the [place] Within the Last 8 Weeks: No Recent Travel Out of the Country Within the Last 8 Weeks: No - Immunization History Tetanus Immunization: Unsure Medications and Allergies Active Medications: Active Medications Sodium Chloride (Ns Inj) 1,000 mls @ 125 mls/hr IV.CONT .Q8H PRIYA Stop: 07/05/18 18:59 Last Admin: 07/05/18 11:35 Dose: 125 mls/hr Sodium Chloride (Ns Flush) 2 ml IV.FLUSH PRN PRN PRN Reason: FLUSH AFTER USING IV ACCESS Allergies Allergy/AdvReac Type Severity Reaction Status Date / Time No Known Allergies Allergy Verified 07/05/18 10:49 Home Medications Medication Instructions Recorded Confirmed Type qklurqbvfx-wundepbdlz-fny-cod 2 cap PO Q4H PRN 06/17/18 07/05/18 History dicyclomine 10 mg PO QID 06/17/18 07/05/18 History rizatriptan 10 mg PO Q2-4H PRN 06/17/18 07/05/18 History temazepam 1 cap PO HS 06/17/18 07/05/18 History Physical Exam Vital signs: Temp Pulse Resp BP Pulse Ox 98.1 F 87 18 101/58 L 97 07/05/18 10:35 07/05/18 12:56 07/05/18 12:56 07/05/18 12:56 07/05/18 12:56 - Constitutional mild distress - Routine Respiratory Exam Present: CTA bilaterally - Routine Abdominal Exam Present: soft, normoactive bowel sounds, tenderness - Routine Exam Perineal: Present: Intact Comments: dark blood from vault in clots Results - Labs CBC & Chem 7: 07/05/18 11:03 07/05/18 11:03 Labs: Short CBC 07/05/18 Range/Units 11:03 WBC 10.3 (4.0-11.0) th/mm3 Hgb 11.1 L (11.6-15.3) gm/dL Hct 32.5 L (35.0-46.0) % Plt Count 349 D (150-450) th/mm3 BMP 07/05/18 11:03 Sodium 138 Potassium 3.8 Chloride 103 Carbon Dioxide 25.3 BUN 21 H Creatinine 0.58 Calcium 8.8 Liver Function 07/05/18 Range/Units 11:03 Total Bilirubin 0.4 (0.2-1.0) mg/dL AST 20 (15-37) U/L ALT 39 (10-53) U/L Alkaline Phosphatase 101 (45-117) U/L Albumin 4.0 (3.4-5.0) g/dL Urine 07/05/18 Range/Units 11:09 Urine Color Red H (Yellw/Straw) Urine Clarity Cloudy H (Clear) Urine pH 8.0 (5.0-8.5) Ur Specific [place] 1.015 (1.002-1.035) Urine Protein 500 or greater (Neg-Trace) mg/dL Urine Glucose (UA) Negative (Negative) mg/dL Assessment and Plan - Assessment (1) S/P [facility] Code(s): Z90.710 - Acquired absence of both cervix and uterus; Z90.722 - Acquired absence of ovaries, bilateral; Z90.79 - Acquired absence of other genital organ(s) Status: Acute (2) Postoperative vaginal bleeding Status: Acute - Plan to OR now for EUA and cuff revision open if necessary have reviewed risks, benefits and expectations with patient, spouse and daughter.
[2018-07-05] MEDS ORDERED: Lidocaine 1%/Epinephrine 1:100,000 Inj 30 ML Vial ONE (14:39)
[2018-07-05] MEDS ORDERED: Estrogens Congugated Vag Cream w/app 30 GM Tube VAGINAL ONE (14:39)
[2018-07-05] MEDS ORDERED: Fluorescein Sod 10% Inj 500 MG/5 ML Ampul IV.PUSH ONE (14:39)
[2018-07-05] MEDS ORDERED: ceFAZolin 2 GM Premix Inj 2 GM/50 ML PIGGYBACK IV.SIG ONE (15:16)
[2018-07-05] MEDS ORDERED: Zolpidem Tartrate 5 MG Tablet PO PRN (16:21)
[2018-07-05] MEDS ORDERED: LORazepam 0.5 MG Tablet PO PRN (16:21)
--- NOTE | 2018-07-05 16:27 | P.OP ---
- Preoperative Diagnosis (1) Postoperative vaginal bleeding - Postoperative Diagnosis (1) Postoperative vaginal bleeding Date of procedure: 07/05/18 Procedure: opening and revisiono vaginal cuff for hemostasis Anesthesia: GETA Surgeon: Josi Mansfield MD Molded Goods Spot Picker: OR staff Estimated blood loss (mL): 50 IV fluids (mL): 2,000 Urine output (mL): 200 Pathology: none sent Operation and Findings: dictated
[2018-07-05] MEDS ORDERED: *Ondansetron Inj 4 MG/2 ML Vial PERIprocedural Use ONLY ONE (16:31)
[2018-07-05] MEDS ORDERED: fentaNYL Citrate Inj 100 MCG/2 ML Ampul ONE (16:39)
[2018-07-05] MEDS ORDERED: *morphine SULFATE 4 MG/ML PERIprocedure ONLY ONE ×2 (16:40→17:36)
[2018-07-05] MEDS ORDERED: *Meperidine Inj 25 MG/ML Vial PERIprocedural Use ONLY ONE (16:51)
[2018-07-05] MEDS ORDERED: *Promethazine Inj 25 MG/ML Vial PERIprocedural use ONLY ONE (16:56)
--- NOTE | 2018-07-05 18:06 | MP ---
cc: Josi Mansfield MD, R John MD DATE OF OPERATION: 07/05/2018 PREOPERATIVE DIAGNOSIS: Vaginal cuff bleeding 10 days post total hysterectomy. POSTOPERATIVE DIAGNOSIS: Vaginal cuff bleeding 10 days post total hysterectomy. PROCEDURE: Revision of vaginal cuff and vaginal packing. ANESTHESIA: General. SURGEON: Josi Mansfield MD FINDINGS: Examination under anesthesia revealed some persistent bleeding from both of the edges of the vaginal cuff at 9 and 3 o'clock. The cuff was therefore opened and the edges evaluated and the lower portion of the pelvis, peritoneal cavity evaluated. There was minimal clot in the actual pelvic cavity. The bleeding appeared to be somewhat brisk from the 3 o'clock suture area. This was sutured with a running interlocking in a reef fashion, leaving the cuff open for further evaluation. This stopped the majority of the bleeding, but oozing from the left side was also identified and that area was also reefed in a running interlocking fashion. Once the entire lower portion of the vaginal cuff was revised like this, the open cuff was carefully evaluated for several minutes to make sure there was no bleeding from pedicles further inside the pelvic and abdominal cavity. Cici was placed on all the pedicles that were visualized and no bleeding was seen. The cuff was then closed with a vertical closure, this time in a running interlocking fashion. Estimated blood loss was 50 mL. Sponge, instrument and needle counts were correct. She had a Fisher in place, which was left in and vaginal packing with Premarin was placed, which both will be removed in the morning. Sponge, instrument and needle counts were correct. She tolerated the procedure well and went to the recovery room in stable condition. Josi Mansfield MD PPC/charles/pc , 04:30 PM , 04:35 PM
[2018-07-05] MEDS: Ibuprofen 600 MG Tablet PO PRN (18:18)
[2018-07-05] MEDS ORDERED: Temazepam 15 MG Capsule PO PRN (18:44)
[2018-07-06] MEDS: Ibuprofen 600 MG Tablet PO PRN (04:17)
[2018-07-06 06:08] LABS: Baso % (Auto) 0.2 % (0.0-2.0); Eos % (Auto) 0.1 % (0.0-4.0); Hematocrit 23.3 % (35.0-46.0); Hemoglobin 7.8 gm/dL (11.6-15.3); Lymph # (Auto) 1.5 th/mm3 (1.0-4.8); Lymph % (Auto) 11.2 % (9.0-44.0); Mean Corpuscular HGB Conc 33.3 % (32.0-36.0); Mean Corpuscular Hemoglobin 29.4 pg (27.0-34.0); Mean Corpuscular Volume 88.3 fL (80.0-100.0); Mean Platelet Volume 6.2 fL (7.0-11.0); Mono # (Auto) 0.9 th/mm3 (0.0-0.9); Mono % (Auto) 6.6 % (0.0-8.0); Neut # (Auto) 11.2 th/mm3 (1.8-7.7); Neut % (Auto) 81.9 % (16.0-70.0); Platelet Count 284 th/mm3 (150-450); Red Blood Count 2.64 mil/mm3 (4.00-5.30); Red Cell Distribution Width 14.6 % (11.6-17.2); White Blood Count 13.6 th/mm3 (4.0-11.0)
[2018-07-06 09:01] VITALS: RESP 15
[2018-07-06] MEDS ORDERED: ceFAZolin 1 GM Premix Inj 1 GM/50 ML FROZ.PIGGY IV.SIG ONE (09:30)
[2018-07-06 12:25] VITALS: BP 86/57; PULSE 98; TEMP 98.1; O2SAT 96
[2018-07-06] MEDS ORDERED: Dicyclomine 10 MG Capsule PO SCH (13:00)
[2018-07-06] MEDS ORDERED: Temazepam 15 MG Capsule PO SCH (21:00)
== END 2018-07-06 13:15 | disposition home or self-care (01) ==
LOC: NEPE 10:33 → N07 14:26 → HSDC 14:26
PROVIDERS: ADMIT Obstetrics & Gynecology; ATTEND Obstetrics & Gynecology

== ENCOUNTER 2018-08-09 09:08 | Inpatient (IN) ==
[2018-08-09] MEDS ORDERED: Morphine Inj 4 MG/ML Vial IV.PUSH ONE (09:53)
--- NOTE | 2018-08-09 09:55 | ED ---
HPI General Chief complaint: Abdominal Pain Stated complaint: Abd/back pain Time Seen by Provider: 08/09/18 09:26 History of Present Illness HPI narrative: Patient is a 53-year-old female presents emergency department for evaluation of left lower quadrant abdominal pain onset on Friday. Patient states she has been recovering from total abdominal hysterectomy on 06/24 and this was the first time she went out and they went out to eat and she has been having some nausea vomiting inability to tolerate p.o. since. States that the left lower quadrant abdominal pain started sometime after has been gradually getting worse. The patient's hysterectomy was complicated by bleeding from the vaginal cuff on 07/05 and she presented to the emergency department again on with vaginal bleeding which required a procedural sedation so that Dr. BLADE MURGUIA her surgeon could assess her bleeding which was from the vaginal cuff again was repaired in the emergency department by Dr. Isabella moran and she was discharged. She has not had a bowel movement in 2 days since the symptoms started on Friday. She states the pain is severe, left lower quadrant, associated signs symptoms context and duration as above. Related Data Home Medications Medication Instructions Recorded Confirmed [id number] 2 cap PO Q4H PRN 06/17/18 08/09/18 dicyclomine 10 mg PO QID 06/17/18 08/09/18 rizatriptan 10 mg PO Q2-4H PRN 06/17/18 08/09/18 temazepam 1 cap PO HS 06/17/18 08/09/18 Allergies Allergy/AdvReac Type Severity Reaction Status Date / Time No Known Allergies Allergy Verified 07/17/18 22:38 [facility] Social History Social History Substance History: No History of Abuse Second Hand Smoke Exposure: No Smoking Status: Never smoker How Often Do You Have a Drink Containing Alcohol: Never Recent Travel in [facility] within the Last 8 Weeks: No Recent Out of Country Travel within the Last 8 Weeks: No Immunization History Tetanus Immunization: Unsure Exam Narrative Exam Narrative: GENERAL: Well-developed well-nourished writhing around slowly in the bed appears uncomfortable. SKIN: Focused skin assessment warm/dry. HEAD: Atraumatic. Normocephalic. EYES: Pupils equal and round. No scleral icterus. No injection or drainage. ENT: No nasal bleeding or discharge. Mucous membranes pink and moist. NECK: Trachea midline. No JVD. CARDIOVASCULAR: Regular rate and rhythm. No murmur appreciated. RESPIRATORY: No accessory muscle use. Clear to auscultation. Breath sounds equal bilaterally. GASTROINTESTINAL: Abdomen soft, mildly tender in the left lower quadrant, no rebound no percussive tenderness. nondistended. Hepatic and splenic margins not palpable. MUSCULOSKELETAL: No obvious deformities. No clubbing. No cyanosis. No edema. NEUROLOGICAL: Awake and alert. No obvious cranial nerve deficits. Motor grossly within normal limits. Normal speech. PSYCHIATRIC: Appropriate mood and affect; insight and judgment normal. Course Initial Documented Vital Signs Pulse Rate 101 H 08/09/18 09:16 Respiratory Rate 20 08/09/18 09:16 Blood Pressure 122/77 08/09/18 09:16 Pulse Oximetry 95 08/09/18 09:16 Last Documented Vital Signs Temperature 98.1 F 08/12/18 00:00 Pulse Rate 85 08/12/18 00:00 Respiratory Rate 17 08/12/18 00:00 Blood Pressure 109/58 L 08/12/18 00:00 Pulse Oximetry 96 08/12/18 00:00 Medical Decision Making MDM Narrative Medical decision making narrative: Patient room to the emergency department certainly she appears fairly uncomfortable and she looks chronically ill as well. Her previous records were revealed and the patient has not had any vaginal bleeding recently. Her symptoms really are in line with kidney stone or diverticulitis or even obstruction. CT of her abdomen was ordered and does show a 4 mm obstructing proximal ureter stone. 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 She is sensitive to Cipro on her last UC and the dose was ordered here. She does not meet septic criteria and is hemodynamically stable. I think given her comorbid illness as well as her continued pain the obstructive uropathy and the ESBL the patient would be well to be admitted until her pain is better controlled and probably needs a urology consult. this was discussed with her and she is agreeable. Medical Screen Exam Complete: Yes Emergency Medical Condition: Yes Lab Data Result diagrams: 08/11/18 08:20 08/11/18 08:20 Lab Results 08/09/18 08/09/18 08/09/18 Range/Units 09:40 09:40 09:40 WBC 10.3 (4.0-11.0) th/mm3 RBC 4.23 (4.00-5.30) mil/mm3 Hgb 12.3 (11.6-15.3) gm/dL Hct 36.1 (35.0-46.0) % MCV 85.3 (80.0-100.0) fL MCH 29.1 (27.0-34.0) pg MCHC 34.1 (32.0-36.0) % RDW 13.1 (11.6-17.2) % Plt Count 258 (150-450) th/mm3 MPV 6.8 L (7.0-11.0) fL Neut % (Auto) 79.3 H (16.0-70.0) % Lymph % (Auto) 12.9 (9.0-44.0) % [place] % (Auto) 7.6 (0.0-8.0) % Eos % (Auto) 0.1 (0.0-4.0) % Baso % (Auto) 0.1 (0.0-2.0) % Neut # (Auto) 8.2 H (1.8-7.7) th/mm3 Lymph # (Auto) 1.3 (1.0-4.8) th/mm3 [place] # (Auto) 0.8 (0.0-0.9) th/mm3 Eos # (Auto) 0.0 (0.0-0.4) th/mm3 Baso # (Auto) 0.0 (0.0-0.2) th/mm3 WBC Differential . Differential Comment Auto diff final PT 10.9 (9.8-11.6) sec INR 1.1 Ratio APTT 25.8 (23.4-31.7) sec Sodium 141 (136-145) meq/L Potassium 3.3 L (3.5-5.1) meq/L Chloride 105 (98-107) meq/L Carbon Dioxide 23.8 (21.0-32.0) meq/L Anion Gap 12 (5-15) meq/L BUN 22 H (7-18) mg/dL Creatinine 0.64 (0.50-1.00) mg/dL Estimated GFR Greater than 89 (>89) mL/min Random Glucose 114 H (74-106) mg/dL Lactic Acid (0.4-2.0) mmol/L Calcium 9.1 (8.5-10.1) mg/dL Magnesium 2.1 (1.5-2.5) mg/dL Total Bilirubin 0.7 (0.2-1.0) mg/dL AST 9 L (15-37) U/L ALT 12 (10-53) U/L Alkaline Phosphatase 74 (45-117) U/L Total Protein 8.2 (6.4-8.2) g/dL Albumin 4.4 (3.4-5.0) g/dL Lipase 56 L (73-393) U/L Urine Color (Yellw/Straw) Urine Clarity (Clear) Urine pH (5.0-8.5) Ur Specific [place] (1.002-1.035) Urine Protein (Neg-Trace) mg/dL Urine Glucose (UA) (Negative) mg/dL Urine Ketones (Negative) mg/dL Urine Occult Blood (Negative) Urine Nitrate (Negative) Urine Bilirubin (Negative) Urine Urobilinogen (Less than 2) mg/dL Ur Leukocyte Esterase (Negative) Urine RBC (0-3) /hpf Urine WBC (0-5) /hpf Urine WBC Clumps (None) Ur Squamous Epith Cells (0-5) /hpf Urine Bacteria (None) /hpf Urine Mucus (Occasional) /lpf Micro UA Comment Ur Microscopic Review Urine Culture Comments 08/09/18 08/09/18 08/10/18 Range/Units 09:40 11:40 03:58 WBC 6.6 (4.0-11.0) th/mm3 RBC 3.20 L (4.00-5.30) mil/mm3 Hgb 9.2 L D (11.6-15.3) gm/dL Hct 27.0 L (35.0-46.0) % MCV 84.6 (80.0-100.0) fL MCH 28.9 (27.0-34.0) pg MCHC 34.1 (32.0-36.0) % RDW 12.9 (11.6-17.2) % Plt Count 177 D (150-450) th/mm3 MPV 6.9 L (7.0-11.0) fL Neut % (Auto) 51.9 (16.0-70.0) % Lymph % (Auto) 35.9 (9.0-44.0) % [place] % (Auto) 9.9 H (0.0-8.0) % Eos % (Auto) 2.1 (0.0-4.0) % Baso % (Auto) 0.2 (0.0-2.0) % Neut # (Auto) 3.4 (1.8-7.7) th/mm3 Lymph # (Auto) 2.4 (1.0-4.8) th/mm3 [place] # (Auto) 0.7 (0.0-0.9) th/mm3 Eos # (Auto) 0.1 (0.0-0.4) th/mm3 Baso # (Auto) 0.0 (0.0-0.2) th/mm3 WBC Differential . Differential Comment Auto diff final PT (9.8-11.6) sec INR Ratio APTT (23.4-31.7) sec Sodium (136-145) meq/L Potassium (3.5-5.1) meq/L Chloride (98-107) meq/L Carbon Dioxide (21.0-32.0) meq/L Anion Gap (5-15) meq/L BUN (7-18) mg/dL Creatinine (0.50-1.00) mg/dL Estimated GFR (>89) mL/min Random Glucose (74-106) mg/dL Lactic Acid 1.5 (0.4-2.0) mmol/L Calcium (8.5-10.1) mg/dL Magnesium (1.5-2.5) mg/dL Total Bilirubin (0.2-1.0) mg/dL AST (15-37) U/L ALT (10-53) U/L Alkaline Phosphatase (45-117) U/L Total Protein (6.4-8.2) g/dL Albumin (3.4-5.0) g/dL Lipase (73-393) U/L Urine Color Yellow (Yellw/Straw) Urine Clarity Hazy H (Clear) Urine pH 5.0 (5.0-8.5) Ur Specific [place] 1.016 (1.002-1.035) Urine Protein 30 H (Neg-Trace) mg/dL Urine Glucose (UA) Negative (Negative) mg/dL Urine Ketones 20 (Negative) mg/dL Urine Occult Blood Moderate H (Negative) Urine Nitrate Negative (Negative) Urine Bilirubin Negative (Negative) Urine Urobilinogen Less than 2 (Less than 2) mg/dL Ur Leukocyte Esterase Large H (Negative) Urine RBC 58 H (0-3) /hpf Urine WBC 71 H (0-5) /hpf Urine WBC Clumps (None) Ur Squamous Epith Cells 1 (0-5) /hpf Urine Bacteria Rare H (None) /hpf Urine Mucus Many H (Occasional) /lpf Micro UA Comment Culture indicated Ur Microscopic Review Not Reportable Urine Culture Comments Culture indicated 08/10/18 08/10/18 08/11/18 Range/Units 03:58 15:48 08:20 WBC 8.7 (4.0-11.0) th/mm3 RBC 3.22 L (4.00-5.30) mil/mm3 Hgb 9.5 L (11.6-15.3) gm/dL Hct 27.1 L (35.0-46.0) % MCV 84.1 (80.0-100.0) fL MCH 29.6 (27.0-34.0) pg MCHC 35.2 (32.0-36.0) % RDW 12.7 (11.6-17.2) % Plt Count 200 (150-450) th/mm3 MPV 6.9 L (7.0-11.0) fL Neut % (Auto) 69.1 (16.0-70.0) % Lymph % (Auto) 19.9 (9.0-44.0) % [place] % (Auto) 10.4 H (0.0-8.0) % Eos % (Auto) 0.4 (0.0-4.0) % Baso % (Auto) 0.2 (0.0-2.0) % Neut # (Auto) 6.0 (1.8-7.7) th/mm3 Lymph # (Auto) 1.7 (1.0-4.8) th/mm3 [place] # (Auto) 0.9 (0.0-0.9) th/mm3 Eos # (Auto) 0.0 (0.0-0.4) th/mm3 Baso # (Auto) 0.0 (0.0-0.2) th/mm3 WBC Differential . Differential Comment Auto diff final PT (9.8-11.6) sec INR Ratio APTT (23.4-31.7) sec Sodium 137 (136-145) meq/L Potassium 3.6 (3.5-5.1) meq/L Chloride 105 (98-107) meq/L Carbon Dioxide 25.7 (21.0-32.0) meq/L Anion Gap 6 (5-15) meq/L BUN 20 H (7-18) mg/dL Creatinine 0.60 (0.50-1.00) mg/dL Estimated GFR Greater than 89 (>89) mL/min Random Glucose 85 (74-106) mg/dL Lactic Acid (0.4-2.0) mmol/L Calcium 8.1 L D (8.5-10.1) mg/dL Magnesium (1.5-2.5) mg/dL Total Bilirubin 0.6 (0.2-1.0) mg/dL AST 8 L (15-37) U/L ALT 9 L (10-53) U/L Alkaline Phosphatase 52 (45-117) U/L Total Protein 6.2 L D (6.4-8.2) g/dL Albumin 3.4 D (3.4-5.0) g/dL Lipase (73-393) U/L Urine Color Red (Yellw/Straw) Urine Clarity Hazy H (Clear) Urine pH 6.0 (5.0-8.5) Ur Specific [place] 1.012 (1.002-1.035) Urine Protein 100 H (Neg-Trace) mg/dL Urine Glucose (UA) Negative (Negative) mg/dL Urine Ketones 20 (Negative) mg/dL Urine Occult Blood Large H (Negative) Urine Nitrate Negative (Negative) Urine Bilirubin Negative (Negative) Urine Urobilinogen Less than 2 (Less than 2) mg/dL Ur Leukocyte Esterase Small H (Negative) Urine RBC (0-3) /hpf Urine WBC 141 H (0-5) /hpf Urine WBC Clumps Occasional H (None) Ur Squamous Epith Cells 1 (0-5) /hpf Urine Bacteria Few H (None) /hpf Urine Mucus Few H (Occasional) /lpf Micro UA Comment Culture indicated Ur Microscopic Review Not Reportable Urine Culture Comments Culture indicated 08/11/18 Range/Units 08:20 WBC (4.0-11.0) th/mm3 RBC (4.00-5.30) mil/mm3 Hgb (11.6-15.3) gm/dL Hct (35.0-46.0) % MCV (80.0-100.0) fL MCH (27.0-34.0) pg MCHC (32.0-36.0) % RDW (11.6-17.2) % Plt Count (150-450) th/mm3 MPV (7.0-11.0) fL Neut % (Auto) (16.0-70.0) % Lymph % (Auto) (9.0-44.0) % [place] % (Auto) (0.0-8.0) % Eos % (Auto) (0.0-4.0) % Baso % (Auto) (0.0-2.0) % Neut # (Auto) (1.8-7.7) th/mm3 Lymph # (Auto) (1.0-4.8) th/mm3 [place] # (Auto) (0.0-0.9) th/mm3 Eos # (Auto) (0.0-0.4) th/mm3 Baso # (Auto) (0.0-0.2) th/mm3 WBC Differential Differential Comment PT (9.8-11.6) sec INR Ratio APTT (23.4-31.7) sec Sodium 136 (136-145) meq/L Potassium 3.4 L (3.5-5.1) meq/L Chloride 103 (98-107) meq/L Carbon Dioxide 25.1 (21.0-32.0) meq/L Anion Gap 8 (5-15) meq/L BUN 13 (7-18) mg/dL Creatinine 0.51 (0.50-1.00) mg/dL Estimated GFR Greater than 89 (>89) mL/min Random Glucose 94 (74-106) mg/dL Lactic Acid (0.4-2.0) mmol/L Calcium 8.3 L (8.5-10.1) mg/dL Magnesium (1.5-2.5) mg/dL Total Bilirubin (0.2-1.0) mg/dL AST (15-37) U/L ALT (10-53) U/L Alkaline Phosphatase (45-117) U/L Total Protein (6.4-8.2) g/dL Albumin (3.4-5.0) g/dL Lipase (73-393) U/L Urine Color ([place]ellw/Straw) Urine Clarity (Clear) Urine pH (5.0-8.5) Ur Specific [place] (1.002-1.035) Urine Protein (Neg-Trace) mg/dL Urine Glucose (UA) (Negative) mg/dL Urine Ketones (Negative) mg/dL Urine Occult Blood (Negative) Urine Nitrate (Negative) Urine Bilirubin (Negative) Urine Urobilinogen (Less than 2) mg/dL Ur Leukocyte Esterase (Negative) Urine RBC (0-3) /hpf Urine WBC (0-5) /hpf Urine WBC Clumps (None) Ur Squamous Epith Cells (0-5) /hpf Urine Bacteria (None) /hpf Urine Mucus (Occasional) /lpf Micro UA Comment Ur Microscopic Review Urine Culture Comments Imaging Data Radiologist's impression: Abdomen/Pelvis CT 08/09/18 09:50 CONCLUSION: 1. Moderate left hydronephrosis and proximal ureter with 4 mm obstructing calculus in the proximal left ureter. 2. Lobulated soft tissue fullness between the bladder and rectum status post hysterectomy. It is uncertain whether this represents postsurgical scarring or mass. 3. Left deep pelvic nodular structures which may represent of adenopathy in the internal iliac chain or obturator chain. Abdomen X-Ray 08/10/18 00:00 CONCLUSION: Stent in good position. Discharge Plan Discharge Disposition Patient Disposition: ED Admit(ED Internal Use Only) Discharge Condition Condition: Stable Discharge Order Discharge Orders: ED Use Only Admit Order (Routine); Ordered 08/09/18 Ordered By: Iron Horan Physicians Team ED Provider: Iron Horan Primary Care Provider: Brian Robert Attending Provider: Gerson Ugarte Other Providers: Dewayne Puga ; Sushma Garcia Status ED Status: Left Department Discharge Information Discharge Date/Time: 08/09/18 14:58
[2018-08-09 10:10] LABS: Baso % (Auto) 0.1 % (0.0-2.0); Eos % (Auto) 0.1 % (0.0-4.0); Hematocrit 36.1 % (35.0-46.0); Hemoglobin 12.3 gm/dL (11.6-15.3); Lymph # (Auto) 1.3 th/mm3 (1.0-4.8); Lymph % (Auto) 12.9 % (9.0-44.0); Mean Corpuscular HGB Conc 34.1 % (32.0-36.0); Mean Corpuscular Hemoglobin 29.1 pg (27.0-34.0); Mean Corpuscular Volume 85.3 fL (80.0-100.0); Mean Platelet Volume 6.8 fL (7.0-11.0); Mono # (Auto) 0.8 th/mm3 (0.0-0.9); Mono % (Auto) 7.6 % (0.0-8.0); Neut # (Auto) 8.2 th/mm3 (1.8-7.7); Neut % (Auto) 79.3 % (16.0-70.0); Platelet Count 258 th/mm3 (150-450); Red Blood Count 4.23 mil/mm3 (4.00-5.30); Red Cell Distribution Width 13.1 % (11.6-17.2); White Blood Count 10.3 th/mm3 (4.0-11.0)
[2018-08-09 10:20] LABS: Activated Partial Thrombo Time 25.8 sec (23.4-31.7); INR 1.1 Ratio; Prothrombin Time 10.9 sec (9.8-11.6)
[2018-08-09 10:27] LABS: Alanine Aminotransferase 12 U/L (10-53); Albumin 4.4 g/dL (3.4-5.0); Anion Gap 12 meq/L (5-15); Aspartate Aminotransferase 9 U/L (15-37); Blood Urea Nitrogen 22 mg/dL (7-18); Calcium 9.1 mg/dL (8.5-10.1); Carbon Dioxide 23.8 meq/L (21.0-32.0); Chloride 105 meq/L (98-107); Glomerular Filtration Rate Greater Than 89 mL/min (>89); Glucose,Random 114 mg/dL (74-106); Lipase 56 U/L (73-393); Magnesium 2.1 mg/dL (1.5-2.5); Potassium 3.3 meq/L (3.5-5.1); Sodium 141 meq/L (136-145)
[2018-08-09 10:29] LABS: Alkaline Phosphatase 74 U/L (45-117); Total Protein 8.2 g/dL (6.4-8.2)
[2018-08-09 12:13] LABS: Bacteria,Urine Rare /hpf; Bilirubin,Urine Negative (Negative); Clarity,Urine Hazy (Clear); Color,Urine Yellow (Yellw/Straw); Glucose,Urine (UA) Negative (Negative); Leukocyte Esterase,Urine Large (Negative); Mucus,Urine Many /lpf (Occasional); Nitrite,Urine Negative (Negative); Specific Gravity,Urine 1.016 (1.002-1.035); Squamous Epithelial Cell,Urine 1 /hpf (0-5)
--- NOTE | 2018-08-09 12:22 | CT ---
EXAM DATE: 08/09/2018 11:57 AM EST AGE/SEX: 53 years / Female INDICATIONS: Left lower abdomen pain CLINICAL DATA: This is the patient's initial encounter. Patient reports that signs and symptoms have been present for 3 days and indicates a pain score of 10/10. MEDICAL/SURGICAL HISTORY: None. Hysterectomy. ORAL CONTRAST: No oral contrast ingested. RADIATION DOSE: 6.64 CTDI (mGy) COMPARISON: No prior exams available for comparison. TECHNIQUE: Multiple contiguous axial images were obtained through the abdomen and pelvis following b olus infusion of 73ML ml Omnipaque 350 (iohexol) nonionic water-soluble contrast as a single exam d ose. No oral contrast ingested. Using automated exposure control and adjustment of the mA and/or kV according to patient size, radiation dose was kept as low as reasonably achievable to obtain optimal diagnostic quality images. DICOM format image data is available electronically for review and compar mina. FINDINGS: Lower Lungs: The visualized lower lungs are clear. Liver: The liver has a homogeneous density without space-occupying lesion. There is no dilation of th e biliary tree. Spleen: Homogeneous density without enlargement. Pancreas: Unremarkable without mass or calcification. Kidneys: The left renal collecting system is moderately distended. There is proximal hydroureter to the level of a 4 mm stone. The kidneys are otherwise unremarkable. Adrenal Glands: Unremarkable. Aorta: The aorta and proximal iliac vessels are grossly unremarkable without aneurysmal dilation. Bowel/Mesentery: The bowel loops are grossly unremarkable. The cecum and sigmoid colon have a normal configuration. Abdominal Wall: Intact. Retroperitoneum: No evidence of adenopathy in the retrocrural, para-aortic, or deep pelvic regions. Bladder: Contours are smooth. Reproductive Organs: The uterus has been surgically removed. There is lobulated soft tissue fullness in the cul-de-sac. The perirectal fat along the mid rectum with obliterated. Clear tissue plane betw een the soft tissue fullness in the rectum is not clearly identified. Nodular structures are noted in the left side of the pelvis. Inguinal: The inguinal region is unremarkable without evidence of adenopathy. Bony Structures: Unremarkable. CONCLUSION: 1. Moderate left hydronephrosis and proximal ureter with 4 mm obstructing calculus in the proximal l eft ureter. 2. Lobulated soft tissue fullness between the bladder and rectum status post hysterectomy. It is unc ertain whether this represents postsurgical scarring or mass. 3. Left deep pelvic nodular structures which may represent of adenopathy in the internal iliac chain or obturator chain. Electronically signed by: Walt Rollins MD 08/09/2018 12:20 PM EST
[2018-08-09] MEDS ORDERED: Ciprofloxacin 400 MG/200 ML 400 MG/200 ML PIGGYBACK IV.SIG ONE (13:29)
[2018-08-09] MEDS ORDERED: Ketorolac Inj 30 MG/ML (IVP) Vial IV.PUSH ONE (13:29)
--- NOTE | 2018-08-09 14:00 | P.HPFP ---
History of Present Illness Primary Care Physician: Brian Robert MD <Ugarte,Gerson - 08/10/18 15:31> Brian Robert MD <Jordi Harrison - 08/09/18 14:00> History of Present Illness: Patient is a 53-year-old female who denies chronic medical problems who presents today for left-sided pain. She reports she has been having issues with recurrent UTIs since her hysterectomy on 06/24/18. There is also report of complication following hysterectomy with bleeding from vaginal cuff and ER visits on 07/05 and 07/17. Addressed by Dr. Mason. She reports her last UTI was treated with completion of antibiotics on 08/01/18. She reports on 08/06/18 she went to have dinner, had abdominal pain later in the night. Abdominal pain has been oscillating for the past 3 days. She notes it is in the left lower abdomen and is felt through to her back. She reports that after her multiple surgeries that she has limited sensation in her pelvic region , urinates approximately every 2 hours at this time. She notes today she has had dark urine for the first time since her last UTI. She denies any blood in urine, abnormal smells. She also reports nausea and vomiting. She has had 6 episodes of emesis today. Started with food, producing bile at this time, denies any blood in vomit. She has had occasional chills. Patient also reports that has been difficult to eat for the past several weeks. She feels full easily. Eats up to 4 times per day but fills quickly. Patient denies fever, chest pain, shortness of breath, left arm or jaw pain, lightheadedness, dizziness, change in vision, headache, changes in bowel movement, black or bloody stools, vaginal discharge, bloody discharge. Medical: Migraines Previous fibroids, s/p surgical correction Surgery: Historectomy 06/24/18, left cuff Repair of cuff 07/05, 07/17 Family: Father: DM Mother: Lung CA Sister: DM, htn, hld Social: No alcohol, No tobacco, no drugs <Jordi Harrison - 08/09/18 15:26> - Diagnosis (1) Hydronephrosis with urinary obstruction due to ureteral calculus (2) UTI (urinary tract infection) (3) ESBL E. 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 This includes certification that hospital inpatient services are reasonable and necessary and in the case of services not specified as inpatient-only under 42 CFR 419.22(n), that they are appropriately provided as inpatient services in accordance to with the 2-midnight benchmark under 43 CFR 412.3(e) <Gerson Ugarte - 08/10/18 15:31> Review of Systems All other systems reviewed negative except as stated in HPI <Jordi Harrison - 08/09/18 15:26> PMFSH - History History Provided By: Patient <Jordi Harrison - 08/09/18 14:00> - Medical History Medical History: Medical History (Last Reviewed 07/18/18 @ 01:23 by Ester Schwartz MD) H/O: hysterectomy Heavy menses History of anesthesia reaction IBS (irritable bowel syndrome) Insomnia MDRO (multiple drug resistant organisms) resistance Onset Date: ~07/05/18 Migraines Painful menstrual flow <Gerson Ugarte - 08/10/18 15:31> Medical History (Last Reviewed 07/18/18 @ 01:23 by Ester Schwartz MD) H/O: hysterectomy Heavy menses History of anesthesia reaction IBS (irritable bowel syndrome) Insomnia MDRO (multiple drug resistant organisms) resistance Onset Date: ~07/05/18 Migraines Painful menstrual flow <Jordi Harrison - 08/09/18 14:00> - Surgical History Surgical History: Surgical History (Last Reviewed 07/17/18 @ 22:40 by Jessica Guajardo) H/O breast biopsy H/O colonoscopy H/O right knee surgery History of dental surgery Previous section S/P LASIK surgery of both eyes <Beryl Ugartey - 08/10/18 15:31> Surgical History (Last Reviewed 07/17/18 @ 22:40 by Jessica Guajardo) H/O breast biopsy H/O colonoscopy H/O right knee surgery History of dental surgery Previous section S/P LASIK surgery of both eyes <Jordi Harrison - 08/09/18 14:00> - Tobacco History Second Hand Smoke Exposure: No <Jordi Harrison - 08/09/18 14:00> Smoking Status: Never smoker <Jordi Harrison - 08/09/18 14:00> - Alcohol History How Often Do You Have a Drink Containing Alcohol: Never <Jordi Harrison - 14:00> - Substance Use History Substance History: No History of Abuse <Jordi Harrison - 08/09/18 14:00> - Travel History Recent Travel in the [place] Within the Last 8 Weeks: No <Jordi Harrison - 08/09 14:00> Recent Travel Out of the Country Within the Last 8 Weeks: No <Jordi Harrison - 08/09/18 14:00> - Immunization History Tetanus Immunization: Unsure <Jordi Harrison - 08/09/18 14:00> Medications and Allergies Allergies Allergy/AdvReac Type Severity Reaction Status Date / Time No Known Allergies Allergy Verified 07/17/18 22:38 <Gerson Ugarte - 08/10/18 15:31> Home Medications Medication Instructions Recorded Confirmed Type [id number] 2 cap PO Q4H PRN 06/17/18 08/09/18 History dicyclomine 10 mg PO QID 06/17/18 08/09/18 History rizatriptan 10 mg PO Q2-4H PRN 06/17/18 08/09/18 History temazepam 1 cap PO HS 06/17/18 08/09/18 History <Gerson Ugarte - 08/10/18 15:31> Active Medications: Active Medications Acetaminophen (Tylenol) 650 mg PO Q4H PRN PRN Reason: Temp > 100.4 Acetaminophen (Tylenol) 650 mg PO Q6HR PRN PRN Reason: PAIN SCALE 1 TO 2 IF HERLINDA PO Acetaminophen/Butalbital/Caffeine (Fioricet 50-325-40) 2 tab PO Q4H PRN PRN Reason: Migraine Headache Hydrocodone Bitart/Acetaminophen (Ehrhardt 10/325) 1 tab PO Q4H PRN PRN Reason: PAIN SCALE 6 TO 10 Last Admin: 08/10/18 04:05 Dose: 1 tab Hydrocodone Bitart/Acetaminophen (Ehrhardt 5/325) 1 tab PO Q4H PRN PRN Reason: PAIN SCALE 3 TO 5 Al Hydroxide/Mg Hydroxide (Milk Of Magnesia Liq) 30 ml PO Q12H PRN PRN Reason: Mild Constipation Bisacodyl (Dulcolax Supp) 10 mg RECTAL DAILY PRN PRN Reason: SEVERE CONSITIPATION Sodium Chloride (1/2 Normal Saline Inj) 1,000 mls @ 132 mls/hr IV.CONT .Q7H35M [facility] Last Infusion: 08/10/18 10:52 Dose: Infused Ciprofloxacin/Dextrose (Cipro 400 Mg/200 Ml Inj) 400 mg in 200 mls @ 200 mls/ hr IV.SIG Q12H [facility] Last Infusion: 08/10/18 07:46 Dose: Infused Lactated Ringer's (Lr 1000 Ml Inj) 1,000 mls @ 30 mls/hr IV.SIG .Q24H [facility] Stop: 08/11/18 10:29 Last Admin: 08/10/18 12:41 Dose: Not Given Sodium Chloride (Ns Inj) 500 mls @ 30 mls/hr IV.SIG .Q10H ONE Stop: 08/11/18 03:39 Last Admin: 08/10/18 12:42 Dose: Not Given Lactulose (Lactulose Liq) 30 ml PO DAILY PRN PRN Reason: SEVERE CONSITIPATION Morphine Sulfate (Morphine Inj) 4 mg IV.PUSH Q3H PRN PRN Reason: BREAKTHROUGH PAIN Last Admin: 08/10/18 07:29 Dose: 4 mg Naloxone HCl (Narcan Inj) 0.4 mg IV.PUSH UNSCH PRN PRN Reason: SEE LABEL COMMENTS Ondansetron HCl (Zofran Inj) 4 mg IV.PUSH Q6H PRN PRN Reason: NAUSEA OR VOMITING Pt Own Med: (Rizatriptan 10mg) 0 each PO Q2H PRN PRN Reason: migraine Senna/Docusate Sodium (Patricia-Colace) 1 tab PO BID [facility] Last Admin: 08/10/18 10:45 Dose: Not Given Sennosides (Senokot) 17.2 mg PO Q12H PRN PRN Reason: Moderate Constipation Sodium Chloride (Ns Flush) 2 ml IV.FLUSH BID [facility] Last Admin: 08/10/18 10:48 Dose: Not Given Sodium Chloride (Ns Flush) 2 ml IV.FLUSH PRN PRN PRN Reason: FLUSH AFTER USING IV ACCESS Tamsulosin HCl (Flomax) 0.4 mg PO DAILY [facility] Last Admin: 08/10/18 10:44 Dose: Not Given Temazepam (Restoril) 15 mg PO HS PRN PRN Reason: INSOMNIA <Gerson Ugarte - 08/10/18 15:31> Active Medications Ciprofloxacin/Dextrose (Cipro 400 Mg/200 Ml Inj) 400 mg in 200 mls @ 200 mls/ hr IV.SIG ONCE ONE Stop: 08/09/18 14:28 Sodium Chloride (Ns Flush) 2 ml IV.FLUSH PRN PRN PRN Reason: FLUSH AFTER USING IV ACCESS <Jordi Harrison - 08/09/18 14:00> Exam Vital signs: Vital Signs 08/09/18 15:32 08/09/18 16:00 08/09/18 20:00 Temperature 98.1 F 98.0 F 97.1 F L Pulse Rate 80 92 H Respiratory Rate 14 16 Blood Pressure 96/51 L 94/53 L Pulse Oximetry 96 97 08/09/18 23:51 08/10/18 04:00 08/10/18 07:52 Temperature 97.6 F 96.5 F L Pulse Rate 96 H 84 Respiratory Rate 16 16 18 Blood Pressure 86/51 L 117/72 Pulse Oximetry 97 100 08/10/18 08:11 08/10/18 11:35 08/10/18 11:50 Temperature 97.7 F 97.8 F Pulse Rate 87 103 H 78 Respiratory Rate 16 20 20 Blood Pressure 100/59 L 102/57 L 104/55 L Pulse Oximetry 97 100 96 08/10/18 12:05 08/10/18 12:20 08/10/18 12:37 Temperature 97.8 F Pulse Rate 73 71 72 Respiratory Rate 16 16 20 Blood Pressure 89/53 L 90/51 L 93/53 L Pulse Oximetry 96 95 95 08/10/18 13:33 Temperature 97.8 F Pulse Rate 77 Respiratory Rate 16 Blood Pressure 103/59 L Pulse Oximetry Intake & Output 08/09/18 08/10/18 08/10/18 18:59 06:59 18:59 Intake Total 200 / 200 1200 / 1200 1200 / 1200 Output Total 800 / 800 Balance 200 / 200 400 / 400 1200 / 1200 Weight 52 kg Intake: IV 200 / 200 1000 / 1000 1200 / 1200 1/2 Normal Saline Inj 1,000 ML 1000 / 1000 1000 / 1000 @ 132 mls/hr IV.CONT .Q7H35M PRIYA Rx#:[id number] Cipro 400 MG/200 ML Inj 400 mg 200 / 200 200 / 200 In 200 ml @ 200 mls/hr IV.SIG Q12H [facility] Rx#:[id number] Oral 200 / 200 Output: Urine 800 / 800 Other: # Voids 1 Date of Last Bowel Movement 08/07/18 08/07/18 Weight On Admission 52 kg <Gerson Ugarte - 08/10/18 15:31> Vital Signs 08/09/18 09:16 08/09/18 09:19 08/09/18 11:47 Pulse Rate 101 H 98 H 82 Respiratory Rate 20 20 18 Blood Pressure 122/77 104/74 121/63 Pulse Oximetry 95 100 100 08/09/18 13:29 Pulse Rate 86 Respiratory Rate 18 Blood Pressure 116/66 Pulse Oximetry 99 Intake & Output 08/08/18 08/09/18 08/09/18 18:59 06:59 18:59 Weight 48.081 kg <Jordi Harrison - 08/09/18 14:00> Narrative: GENERAL: Laying in bed, no acute distress SKIN: Warm and dry. HEAD: Atraumatic. Normocephalic. EYES: Pupils equal and round. No scleral icterus. No injection or drainage. ENT: No nasal bleeding or discharge. Mucous membranes pink and moist. NECK: Trachea midline. No JVD. CARDIOVASCULAR: Regular rate and rhythm. RESPIRATORY: No accessory muscle use. Clear to auscultation. Breath sounds equal bilaterally. GASTROINTESTINAL: Abdomen soft, nondistended. Hepatic and splenic margins not palpable. Significant abdominal tenderness in left lower quadrant. Negative rebound, guarding, Ko's, McBurney's. MUSCULOSKELETAL: Extremities without clubbing, cyanosis, or edema. No obvious deformities. Significant left-sided CVA tenderness. NEUROLOGICAL: Awake and alert. No obvious cranial nerve deficits. Motor grossly within normal limits. Five out of 5 muscle strength in the arms and legs. Normal speech. PSYCHIATRIC: Appropriate mood and affect; insight and judgment normal. <Jordi Harrison - 08/09/18 15:26> Results - Labs Result diagrams: 08/10/18 03:58 08/10/18 03:58 <Gerson Ugarte - 08/10/18 15:31> Abnormal lab results 08/10/18 08/10/18 Range/Units 03:58 03:58 RBC 3.20 L (4.00-5.30) mil/mm3 Hgb 9.2 L D (11.6-15.3) gm/dL Hct 27.0 L (35.0-46.0) % MPV 6.9 L (7.0-11.0) fL [place] % (Auto) 9.9 H (0.0-8.0) % BUN 20 H (7-18) mg/dL Calcium 8.1 L D (8.5-10.1) mg/dL AST 8 L (15-37) U/L ALT 9 L (10-53) U/L Total Protein 6.2 L D (6.4-8.2) g/dL Short CBC 08/10/18 Range/Units 03:58 WBC 6.6 (4.0-11.0) th/mm3 Hgb 9.2 L D (11.6-15.3) gm/dL Hct 27.0 L (35.0-46.0) % Plt Count 177 D (150-450) th/mm3 BMP 08/10/18 03:58 Sodium 137 Potassium 3.6 Chloride 105 Carbon Dioxide 25.7 BUN 20 H Creatinine 0.60 Calcium 8.1 L D Liver Function 08/10/18 Range/Units 03:58 Total Bilirubin 0.6 (0.2-1.0) mg/dL AST 8 L (15-37) U/L ALT 9 L (10-53) U/L Alkaline Phosphatase 52 (45-117) U/L Albumin 3.4 D (3.4-5.0) g/dL <Gerson Ugarte - 08/10/18 15:31> Abnormal lab results 08/09/18 08/09/18 08/09/18 Range/Units 09:40 09:40 11:40 MPV 6.8 L (7.0-11.0) fL Neut % (Auto) 79.3 H (16.0-70.0) % Neut # (Auto) 8.2 H (1.8-7.7) th/mm3 Potassium 3.3 L (3.5-5.1) meq/L BUN 22 H (7-18) mg/dL Random Glucose 114 H (74-106) mg/dL AST 9 L (15-37) U/L Lipase 56 L (73-393) U/L Urine Clarity Hazy H (Clear) Urine Protein 30 H (Neg-Trace) mg/dL Urine Occult Blood Moderate H (Negative) Ur Leukocyte Esterase Large H (Negative) Urine RBC 58 H (0-3) /hpf Urine WBC 71 H (0-5) /hpf Urine Bacteria Rare H (None) /hpf Urine Mucus Many H (Occasional) /lpf Short CBC 08/09/18 Range/Units 09:40 WBC 10.3 (4.0-11.0) th/mm3 Hgb 12.3 (11.6-15.3) gm/dL Hct 36.1 (35.0-46.0) % Plt Count 258 (150-450) th/mm3 BMP 08/09/18 09:40 Sodium 141 Potassium 3.3 L Chloride 105 Carbon Dioxide 23.8 BUN 22 H Creatinine 0.64 Calcium 9.1 Liver Function 08/09/18 Range/Units 09:40 Total Bilirubin 0.7 (0.2-1.0) mg/dL AST 9 L (15-37) U/L ALT 12 (10-53) U/L Alkaline Phosphatase 74 (45-117) U/L Albumin 4.4 (3.4-5.0) g/dL Urine 08/09/18 Range/Units 11:40 Urine Color Yellow (Yellw/Straw) Urine Clarity Hazy H (Clear) Urine pH 5.0 (5.0-8.5) Ur Specific [place] 1.016 (1.002-1.035) Urine Protein 30 H (Neg-Trace) mg/dL Urine Glucose (UA) Negative (Negative) mg/dL <Jordi Harrison - 08/09/18 14:00> - Imaging Impressions Abdomen X-Ray 08/10/18 00:00 CONCLUSION: Stent in good position. <Gerson Ugarte - 08/10/18 15:31> Impressions Abdomen/Pelvis CT 08/09/18 09:50 CONCLUSION: 1. Moderate left hydronephrosis and proximal ureter with 4 mm obstructing calculus in the proximal left ureter. 2. Lobulated soft tissue fullness between the bladder and rectum status post hysterectomy. It is uncertain whether this represents postsurgical scarring or mass. 3. Left deep pelvic nodular structures which may represent of adenopathy in the internal iliac chain or obturator chain. <Jordi Harrison - 08/09/18 14:00> Caprinalexus VTE Risk Assessment Caprini VTE Risk Assessment: No/Low Risk (score <= 1) <Jordi Harrison - 05/19 15:26> Mahamed Risk Assessment Model: Point Value = 1 Point Value = 2 Point Value = 3 Point Value = 5 Age 41-60 Minor surgery BMI > 25 kg/m2 Swollen legs Varicose veins or History of unexplained or recurrent spontaneous Oral contraceptives or hormone replacement Sepsis (< 1 month) Serious lung disease, including pneumonia (< 1 month) Abnormal pulmonary function Acute myocardial infarction Congestive heart failure (< 1 month) History of inflammatory bowel disease Medical patient at bed rest Age 61-74 Arthroscopic surgery Major open surgery (> 45 min) Laparoscopic surgery (> 45 min) Malignancy Confined to bed (> 72 hours) Immobilizing plaster cast Central venous access Age >= 75 History of VTE Family history of VTE Factor V Leiden Prothrombin [id number] Lupus anticoagulant Anticardiolipin antibodies Elevated serum homocysteine Heparin-induced thrombocytopenia Other congenital or acquired thrombophilia Stroke (< 1 month) Elective arthroplasty Hip, pelvis, or leg fracture Acute spinal cord injury (< 1 month) <Gerson Ugarte - 08/10/18 15:31> Point Value = 1 Point Value = 2 Point Value = 3 Point Value = 5 Age 41-60 Minor surgery BMI > 25 kg/m2 Swollen legs Varicose veins or History of unexplained or recurrent spontaneous Oral contraceptives or hormone replacement Sepsis (< 1 month) Serious lung disease, including pneumonia (< 1 month) Abnormal pulmonary function Acute myocardial infarction Congestive heart failure (< 1 month) History of inflammatory bowel disease Medical patient at bed rest Age 61-74 Arthroscopic surgery Major open surgery (> 45 min) Laparoscopic surgery (> 45 min) Malignancy Confined to bed (> 72 hours) Immobilizing plaster cast Central venous access Age >= 75 History of VTE Family history of VTE Factor V Leiden Prothrombin [id number] Lupus anticoagulant Anticardiolipin antibodies Elevated serum homocysteine Heparin-induced thrombocytopenia Other congenital or acquired thrombophilia Stroke (< 1 month) Elective arthroplasty Hip, pelvis, or leg fracture Acute spinal cord injury (< 1 month) <Jordi Harrison - 08/09/18 14:00> Prophylaxis Regimen: Total Risk Factor Score Risk Level Prophylaxis Regimen 0-1 Low Early ambulation 2 Moderate Order ONE of the following: *Sequential Compression Device (SCD) *Heparin 5000 units SQ BID 3-4 Higher Order ONE of the following medications: *Heparin 5000 units SQ TID *Enoxaparin/Lovenox 40 mg SQ daily (WT < 150 kg, CrCl > 30 mL/min) *Enoxaparin/Lovenox 30 mg SQ daily (WT < 150 kg, CrCl > 10-29 mL/min) *Enoxaparin/Lovenox 30 mg SQ BID (WT < 150 kg, CrCl > 30 mL/min) AND/OR *Sequential Compression Device (SCD) 5 or more Highest Order ONE of the following medications: *Heparin 5000 units SQ TID (Preferred with Epidurals) *Enoxaparin/Lovenox 40 mg SQ daily (WT < 150 kg, CrCl > 30 mL/min) *Enoxaparin/Lovenox 30 mg SQ daily (WT < 150 kg, CrCl > 10-29 mL/min) *Enoxaparin/Lovenox 30 mg SQ BID (WT < 150 kg, CrCl > 30 mL/min) AND *Sequential Compression Device (SCD) <Gerson Ugarte - 08/10/18 15:31> Total Risk Factor Score Risk Level Prophylaxis Regimen 0-1 Low Early ambulation 2 Moderate Order ONE of the following: *Sequential Compression Device (SCD) *Heparin 5000 units SQ BID 3-4 Higher Order ONE of the following medications: *Heparin 5000 units SQ TID *Enoxaparin/Lovenox 40 mg SQ daily (WT < 150 kg, CrCl > 30 mL/min) *Enoxaparin/Lovenox 30 mg SQ daily (WT < 150 kg, CrCl > 10-29 mL/min) *Enoxaparin/Lovenox 30 mg SQ BID (WT < 150 kg, CrCl > 30 mL/min) AND/OR *Sequential Compression Device (SCD) 5 or more Highest Order ONE of the following medications: *Heparin 5000 units SQ TID (Preferred with Epidurals) *Enoxaparin/Lovenox 40 mg SQ daily (WT < 150 kg, CrCl > 30 mL/min) *Enoxaparin/Lovenox 30 mg SQ daily (WT < 150 kg, CrCl > 10-29 mL/min) *Enoxaparin/Lovenox 30 mg SQ BID (WT < 150 kg, CrCl > 30 mL/min) AND *Sequential Compression Device (SCD) <Jordi Harrison - 08/09/18 14:00> Assessment and Plan - Assessment (1) Hydronephrosis with urinary obstruction due to ureteral calculus Code(s): N13.2 - Hydronephrosis with renal and ureteral calculous obstruction Status: Acute (2) UTI (urinary tract infection) Code(s): N39.0 - Urinary tract infection, site not specified Status: Acute (3) ESBL E. coli carrier Code(s): Z22.39 - Carrier of other specified bacterial diseases Status: Chronic (4) Hypokalemia Code(s): E87.6 - Hypokalemia Status: Resolved (5) Migraines Code(s): G43.909 - Migraine, unspecified, not intractable, without status migrainosus Status: Acute <Gerson Ugarte - 08/10/18 15:31> (1) Hydronephrosis with urinary obstruction due to ureteral calculus Code(s): N13.2 - Hydronephrosis with renal and ureteral calculous obstruction Status: Acute Plan: Left-sided hydronephrosis with urinary obstruction secondary to ureteral calculus, 4 mm. Without signs of urosepsis. Called Dr. Puga, recommended pain control and discharge following control to follow-up outpatient with him. -Ehrhardt pain scale with morphine breakthrough -Flomax 0.4 mg daily -P.o. fluids, 1.5 maintenance -Strain urine -Treat UTI as noted below (2) UTI (urinary tract infection) Code(s): N39.0 - Urinary tract infection, site not specified Status: Acute Plan: Currently with UTI. History of ESBL on 07/05, sensitive to ciprofloxacin. -Continue ciprofloxacin 400 every 12 hrs -Follow-up cultures and sensitivities, change abx as needed (3) ESBL E. coli carrier Code(s): Z22.39 - Carrier of other specified bacterial diseases Status: Acute Plan: ESBL positive on 07/05. -Contact precautions (4) Hypokalemia Code(s): E87.6 - Hypokalemia Status: Acute Plan: Likely due to decreased p.o. intake and vomiting. -Monitor and replete as needed (5) Migraines Code(s): G43.909 - Migraine, unspecified, not intractable, without status migrainosus Status: Acute Plan: History of migraines. -Rizatriptan as needed -Symptomatic control <Jordi Harrison - 08/09/18 15:38> - Attending Attestation See the residents documentation for details. I saw and evaluated the patient regarding the kelsey portions of this evaluation and agree with the residents findings and plans as written. Parts of this note were created using [employer] voice recognition software program. While efforts were made to correct any mistakes made by this software, some mistakes, errors, and omissions may remain in the final note that were not caught when the note was originally created. Plan of care was discussed and agreed upon with the patient as specifically documented in the above note. An opportunity to ask questions with explanation was provided. Patient voiced understanding on all information reviewed and discussed. <Gerson Ugarte - 08/10/18 15:31>
[2018-08-09] MEDS ORDERED: Bisacodyl 10 MG Supp RECTAL PRN (14:12)
[2018-08-09] MEDS ORDERED: Naloxone Inj 0.4 MG/ML Vial IV.PUSH PRN (14:12)
[2018-08-09] MEDS ORDERED: Acetaminophen 325 MG Tablet PO PRN ×2 (14:12)
[2018-08-09] MEDS ORDERED: Temazepam 15 MG Capsule PO PRN (14:12)
[2018-08-09] MEDS ORDERED: RIZATRIPTAN 10 MG PO PRN (15:35)
[2018-08-09] MEDS ORDERED: Butalbital/APAP/Caff 50/325/40 MG Tablet PO PRN (15:35)
[2018-08-09] MEDS: Sodium Chloride 0.45 % Inj 1,000 ML IV.CONT SCH (16:43)
--- NOTE | 2018-08-09 18:10 | P.CONURO ---
History of Present Illness Service: Consult date: 08/09/18 Requesting Physician: Jordi Harrison Reason for Consult: Left ureteral calculus Primary Care Provider: Brian Robert MD History of Present Illness: 53-year-old female with no prior history nephrolithiasis who is status post a hysterectomy back on June 24 of this year and presents now with a 3-day history of intermittent left flank pain that has been increasing in intensity. For limited workup included a CT scan of the abdomen and pelvis that demonstrated a 4 mm left proximal ureteral calculus causing moderate left hydronephrosis. Patient has been afebrile. She denies gross hematuria. She reports the episodic pain to be severe in nature. Review of Systems All other systems reviewed negative except as stated in HPI PMFSH - History History Provided By: Patient - Medical History Medical History: Medical History (Last Reviewed 07/18/18 @ 01:23 by Ester Schwartz MD) H/O: hysterectomy Heavy menses History of anesthesia reaction IBS (irritable bowel syndrome) Insomnia MDRO (multiple drug resistant organisms) resistance Onset Date: ~07/05/18 Migraines Painful menstrual flow - Surgical History Surgical History: Surgical History (Last Reviewed 07/17/18 @ 22:40 by Jessica Guajardo) H/O breast biopsy H/O colonoscopy H/O right knee surgery History of dental surgery Previous section S/P LASIK surgery of both eyes - Tobacco History Second Hand Smoke Exposure: No Smoking Status: Never smoker - Alcohol History How Often Do You Have a Drink Containing Alcohol: Never - Substance Use History Substance History: No History of Abuse - Travel History Recent Travel in the [place] Within the Last 8 Weeks: No Recent Travel Out of the Country Within the Last 8 Weeks: No - Immunization History Tetanus Immunization: Unsure Medications and Allergies Active Medications: Active Medications Acetaminophen (Tylenol) 650 mg PO Q4H PRN PRN Reason: Temp > 100.4 Acetaminophen (Tylenol) 650 mg PO Q6HR PRN PRN Reason: PAIN SCALE 1 TO 2 IF HERLINDA PO Acetaminophen/Butalbital/Caffeine (Fioricet 50-325-40) 2 tab PO Q4H PRN PRN Reason: Migraine Headache Hydrocodone Bitart/Acetaminophen ([place] 10/325) 1 tab PO Q4H PRN PRN Reason: PAIN SCALE 6 TO 10 Last Admin: 08/09/18 15:26 Dose: 1 tab Hydrocodone Bitart/Acetaminophen ([place] 5/325) 1 tab PO Q4H PRN PRN Reason: PAIN SCALE 3 TO 5 Al Hydroxide/Mg Hydroxide (Milk Of Magnesia Liq) 30 ml PO Q12H PRN PRN Reason: Mild Constipation Bisacodyl (Dulcolax Supp) 10 mg RECTAL DAILY PRN PRN Reason: SEVERE CONSITIPATION Sodium Chloride (1/2 Normal Saline Inj) 1,000 mls @ 132 mls/hr IV.CONT .Q7H35M [facility] Last Admin: 08/09/18 16:43 Dose: 132 mls/hr Ciprofloxacin/Dextrose (Cipro 400 Mg/200 Ml Inj) 400 mg in 200 mls @ 200 mls/ hr IV.SIG Q12H [facility] Lactulose (Lactulose Liq) 30 ml PO DAILY PRN PRN Reason: SEVERE CONSITIPATION Morphine Sulfate (Morphine Inj) 4 mg IV.PUSH Q3H PRN PRN Reason: BREAKTHROUGH PAIN Naloxone HCl (Narcan Inj) 0.4 mg IV.PUSH UNSCH PRN PRN Reason: SEE LABEL COMMENTS Ondansetron HCl (Zofran Inj) 4 mg IV.PUSH Q6H PRN PRN Reason: NAUSEA OR VOMITING Pt Own Med: (Rizatriptan 10mg) 0 each PO Q2H PRN PRN Reason: migraine Senna/Docusate Sodium (Patricia-Colace) 1 tab PO BID [facility] Sennosides (Senokot) 17.2 mg PO Q12H PRN PRN Reason: Moderate Constipation Sodium Chloride (Ns Flush) 2 ml IV.FLUSH BID [facility] Sodium Chloride (Ns Flush) 2 ml IV.FLUSH PRN PRN PRN Reason: FLUSH AFTER USING IV ACCESS Tamsulosin HCl (Flomax) 0.4 mg PO DAILY [facility] Last Admin: 08/09/18 16:44 Dose: 0.4 mg Temazepam (Restoril) 15 mg PO HS PRN PRN Reason: INSOMNIA Allergies Allergy/AdvReac Type Severity Reaction Status Date / Time No Known Allergies Allergy Verified 07/17/18 22:38 Home Medications Medication Instructions Recorded Confirmed Type [id number] 2 cap PO Q4H PRN 06/17/18 08/09/18 History dicyclomine 10 mg PO QID 06/17/18 08/09/18 History rizatriptan 10 mg PO Q2-4H PRN 06/17/18 08/09/18 History temazepam 1 cap PO HS 06/17/18 08/09/18 History Physical Exam Vital Signs - 24 hr 08/09/18 09:16 08/09/18 09:19 08/09/18 11:47 Temperature Pulse Rate 101 H 98 H 82 Respiratory Rate 20 20 18 Blood Pressure 122/77 104/74 121/63 Pulse Oximetry 95 100 100 08/09/18 13:29 08/09/18 14:52 08/09/18 15:32 Temperature 98.1 F Pulse Rate 86 86 Respiratory Rate 18 18 Blood Pressure 116/66 137/73 Pulse Oximetry 99 98 08/09/18 16:00 Temperature 98.0 F Pulse Rate 80 Respiratory Rate 14 Blood Pressure 96/51 L Pulse Oximetry 96 Physical Exam: GENERAL: This is a well-nourished, well-developed patient, in no apparent distress. SKIN: No rashes, ecchymoses or lesions. Cool and dry. HEAD: Atraumatic. Normocephalic. No temporal or scalp tenderness. EYES: Pupils equal round and reactive. Extraocular motions intact. No scleral icterus. No injection or drainage. ENT: Nose without bleeding, purulent drainage or septal hematoma. Throat without erythema, tonsillar hypertrophy or exudate. Uvula midline. Airway patent. NECK: Trachea midline. No JVD or lymphadenopathy. Supple, nontender, no meningeal signs. CARDIOVASCULAR: Regular rate and rhythm without murmurs, gallops, or rubs. RESPIRATORY: Clear to auscultation. Breath sounds equal bilaterally. No wheezes , rales, or rhonchi. GASTROINTESTINAL: Abdomen soft, non-tender, nondistended. No hepato-splenomegaly , or palpable masses. No guarding. GENITOURINARY: No CVA tenderness, bladder not distended MUSCULOSKELETAL: Extremities without clubbing, cyanosis, or edema. No joint tenderness, effusion, or edema noted. No calf tenderness. Negative Homans sign bilaterally. NEUROLOGICAL: Awake and alert. Cranial nerves II through XII intact. Motor and sensory grossly within normal limits. Five out of 5 muscle strength in all muscle groups. Normal speech. Laboratory Results - last 24 hr 08/09/18 08/09/18 08/09/18 09:40 09:40 09:40 WBC 10.3 RBC 4.23 Hgb 12.3 Hct 36.1 MCV 85.3 MCH 29.1 MCHC 34.1 RDW 13.1 Plt Count 258 MPV 6.8 L Neut % (Auto) 79.3 H Lymph % (Auto) 12.9 [place] % (Auto) 7.6 Eos % (Auto) 0.1 Baso % (Auto) 0.1 Neut # (Auto) 8.2 H Lymph # (Auto) 1.3 [place] # (Auto) 0.8 Eos # (Auto) 0.0 Baso # (Auto) 0.0 WBC Differential . Differential Comment Auto diff final PT 10.9 INR 1.1 APTT 25.8 Sodium 141 Potassium 3.3 L Chloride 105 Carbon Dioxide 23.8 Anion Gap 12 BUN 22 H Creatinine 0.64 Estimated GFR Greater than 89 Random Glucose 114 H Lactic Acid Calcium 9.1 Magnesium 2.1 Total Bilirubin 0.7 AST 9 L ALT 12 Alkaline Phosphatase 74 Total Protein 8.2 Albumin 4.4 Lipase 56 L Urine Color Urine Clarity Urine pH Ur Specific [place] Urine Protein Urine Glucose (UA) Urine Ketones Urine Occult Blood Urine Nitrate Urine Bilirubin Urine Urobilinogen Ur Leukocyte Esterase Urine RBC Urine WBC Ur Squamous Epith Cells Urine Bacteria Urine Mucus Micro UA Comment Ur Microscopic Review Urine Culture Comments 08/09/18 08/09/18 09:40 11:40 WBC RBC Hgb Hct MCV MCH MCHC RDW Plt Count MPV Neut % (Auto) Lymph % (Auto) [place] % (Auto) Eos % (Auto) Baso % (Auto) Neut # (Auto) Lymph # (Auto) [place] # (Auto) Eos # (Auto) Baso # (Auto) WBC Differential Differential Comment PT INR APTT Sodium Potassium Chloride Carbon Dioxide Anion Gap BUN Creatinine Estimated GFR Random Glucose Lactic Acid 1.5 Calcium Magnesium Total Bilirubin AST ALT Alkaline Phosphatase Total Protein Albumin Lipase Urine Color Yellow Urine Clarity Hazy H Urine pH 5.0 Ur Specific [place] 1.016 Urine Protein 30 H Urine Glucose (UA) Negative Urine Ketones 20 Urine Occult Blood Moderate H Urine Nitrate Negative Urine Bilirubin Negative Urine Urobilinogen Less than 2 Ur Leukocyte Esterase Large H Urine RBC 58 H Urine WBC 71 H Ur Squamous Epith Cells 1 Urine Bacteria Rare H Urine Mucus Many H Micro UA Comment Culture indicated Ur Microscopic Review Not Reportable Urine Culture Comments Culture indicated Result Diagrams: 08/09/18 09:40 08/09/18 09:40 Imaging: ITS Impressions Abdomen/Pelvis CT 08/09/18 09:50 CONCLUSION: 1. Moderate left hydronephrosis and proximal ureter with 4 mm obstructing calculus in the proximal left ureter. 2. Lobulated soft tissue fullness between the bladder and rectum status post hysterectomy. It is uncertain whether this represents postsurgical scarring or mass. 3. Left deep pelvic nodular structures which may represent of adenopathy in the internal iliac chain or obturator chain. Assessment and Plan - Assessment (1) Ureteral calculus, left Code(s): N20.1 - Calculus of ureter Status: Acute - Plan Urologic impression: 1. Left flank pain secondary to an obstructing 4 mm left proximal ureteral calculus which has not spontaneous passed over the past several days 2. Left hydronephrosis related to the obstructing calculus Plan: 1. Strain all urine 2. Tamsulosin 0.4 mg by mouth daily 3. N.p.o. after midnight 4. We will tentatively place the patient on the OR schedule tomorrow for cystoscopy, left retrograde pyelogram and left ureteral stent placement
[2018-08-09] MEDS: Senna/Docusate Sodium 8.6/50 MG Tablet PO SCH (20:51)
[2018-08-10] MEDS: Sodium Chloride 0.45 % Inj 1,000 ML IV.CONT SCH ×3 (01:34→10:48)
[2018-08-10] MEDS: Morphine Inj 4 MG/ML Vial IV.PUSH PRN ×2 (04:22→07:29)
[2018-08-10 05:07] LABS: Baso % (Auto) 0.2 % (0.0-2.0); Eos # (Auto) 0.1 th/mm3 (0.0-0.4); Eos % (Auto) 2.1 % (0.0-4.0); Hemoglobin 9.2 gm/dL (11.6-15.3); Lymph # (Auto) 2.4 th/mm3 (1.0-4.8); Lymph % (Auto) 35.9 % (9.0-44.0); Mean Corpuscular HGB Conc 34.1 % (32.0-36.0); Mean Corpuscular Hemoglobin 28.9 pg (27.0-34.0); Mean Corpuscular Volume 84.6 fL (80.0-100.0); Mean Platelet Volume 6.9 fL (7.0-11.0); Mono # (Auto) 0.7 th/mm3 (0.0-0.9); Mono % (Auto) 9.9 % (0.0-8.0); Neut # (Auto) 3.4 th/mm3 (1.8-7.7); Neut % (Auto) 51.9 % (16.0-70.0); Platelet Count 177 th/mm3 (150-450); Red Cell Distribution Width 12.9 % (11.6-17.2); White Blood Count 6.6 th/mm3 (4.0-11.0)
[2018-08-10 05:47] LABS: Alanine Aminotransferase 9 U/L (10-53); Albumin 3.4 g/dL (3.4-5.0); Alkaline Phosphatase 52 U/L (45-117); Anion Gap 6 meq/L (5-15); Aspartate Aminotransferase 8 U/L (15-37); Blood Urea Nitrogen 20 mg/dL (7-18); Calcium 8.1 mg/dL (8.5-10.1); Carbon Dioxide 25.7 meq/L (21.0-32.0); Chloride 105 meq/L (98-107); Glomerular Filtration Rate Greater Than 89 mL/min (>89); Glucose,Random 85 mg/dL (74-106); Potassium 3.6 meq/L (3.5-5.1); Sodium 137 meq/L (136-145); Total Protein 6.2 g/dL (6.4-8.2)
[2018-08-10] MEDS: Ciprofloxacin 400 MG/200 ML 400 MG/200 ML PIGGYBACK IV.SIG SCH ×2 (06:28→18:24)
[2018-08-10] MEDS: Senna/Docusate Sodium 8.6/50 MG Tablet PO SCH ×2 (07:29→10:45)
[2018-08-10] MEDS ORDERED: Metoprolol Tartrate 25 MG Tablet PO ONE (10:24)
[2018-08-10] MEDS ORDERED: Chlorhexidine Gluconate 2% 1 Pack (2 Cloths) TOPICAL ONE (10:24)
[2018-08-10] MEDS ORDERED: Sodium Chlor 0.9% Inj 500 ML IV.SIG ONE (11:00)
[2018-08-10] MEDS ORDERED: Iohexol Inj 350 MG/ML 100 ML Bottle (for RAD Diag) IVCONTRAST ONE (11:14)
--- NOTE | 2018-08-10 11:42 | P.OP ---
- Preoperative Diagnosis (1) Ureteral calculus, left - Postoperative Diagnosis (1) Ureteral calculus, left Date of procedure: 08/10/18 Procedure: Cystoscopy, left retrograde pyelogram and left ureteral stent placement Implants: Hundred 6 [place] by 22 cm ureteral stent Anesthesia: JOSHUA Surgeon: Dewayne Puga MD Estimated blood loss (mL): 0 Pathology: none sent Operation and Findings: Indication for procedures: Case of a pleasant 53-year-old female with an obstructing 4 mm left proximal ureteral calculus that has not passed over the past several days. She presents now for left ureteral stent placement. Operative procedure in detail: Patient was brought to the operating room suite placed supine on the cystoscopy table. She was then placed under general anesthesia. She was then repositioned in the dorsolithotomy position and prepped and draped in normal sterile fashion. After appropriate timeout was undertaken I proceeded with cystoscopic evaluation utilizing the rigid cystoscope with the 20 [place] sheath and the 30 degree lens. Both right and left ureteral orifices were in correct anatomic position. There was clear drainage noted on the right and none on the left. A sensor 0.035 wire was advanced up the patient's left ureter and upon advancing the wire a significant amount of drainage was noted from the left orifice. The wire was fully advanced into the left renal pelvis there appeared to be a small shadow involving the right proximal ureter consistent with the patient's known calculus however I cannot say this with certainty. A 6 [place] open-ended catheter was advanced over the wire several centimeters proximal to the left ureteral orifice and the wire was withdrawn. A left retrograde pyelogram study was performed to outline the left collecting system. I could not visualize a clear demarcation from the obstructing stone. The guidewire was reintroduced and the open-ended catheter was exchanged for an optimal 6 [place] by 22 cm double-J stent. The stent was placed on the both cystoscopic and fluoroscopic guidance without difficulty. Once the stent was in proper position the trailing string was removed. The bladder was then drained of all irrigant fluid and the cystoscope withdrawn. The patient tolerated the procedures without complications and was transferred to the PACU in satisfactory condition. A KUB study will be ordered in the PACU to see if the stone is clearly visible.
--- NOTE | 2018-08-10 12:20 | P.PNFP ---
Subjective Interval history: No acute events overnight. She reports significant improvement in her pain. She still has some discomfort in the left lower quadrant. She denies fever, chills, headache, nausea, vomiting, chest pain, shortness of breath, palpitations. She has no new complaints today. She reports that she was not notified of her previous culture that was positive for ESBL E. coli. She says that it was collected postoperatively when she was bleeding and she was not experiencing traditional UTI symptoms at that time. <Jeffery Villasenor - 08/10/18 16:11> Results - Labs Result diagrams: 08/12/18 08:14 08/12/18 08:14 <Gerson Ugarte - 08/12/18 13:39> Abnormal lab results 08/12/18 08/12/18 Range/Units 08:14 08:14 RBC 3.18 L (4.00-5.30) mil/mm3 Hgb 9.2 L (11.6-15.3) gm/dL Hct 27.1 L (35.0-46.0) % MPV 6.8 L (7.0-11.0) fL Early % (Auto) 10.5 H (0.0-8.0) % Potassium 3.2 L (3.5-5.1) meq/L Creatinine 0.43 L (0.50-1.00) mg/dL Calcium 8.2 L (8.5-10.1) mg/dL Short CBC 08/12/18 Range/Units 08:14 WBC 6.1 (4.0-11.0) th/mm3 Hgb 9.2 L (11.6-15.3) gm/dL Hct 27.1 L (35.0-46.0) % Plt Count 186 (150-450) th/mm3 BMP 08/12/18 08:14 Sodium 139 Potassium 3.2 L Chloride 104 Carbon Dioxide 27.7 BUN 16 Creatinine 0.43 L Calcium 8.2 L <Gerson Ugarte - 08/12/18 13:39> Abnormal lab results 08/10/18 08/10/18 Range/Units 03:58 03:58 RBC 3.20 L (4.00-5.30) mil/mm3 Hgb 9.2 L D (11.6-15.3) gm/dL Hct 27.0 L (35.0-46.0) % MPV 6.9 L (7.0-11.0) fL [place] % (Auto) 9.9 H (0.0-8.0) % BUN 20 H (7-18) mg/dL Calcium 8.1 L D (8.5-10.1) mg/dL AST 8 L (15-37) U/L ALT 9 L (10-53) U/L Total Protein 6.2 L D (6.4-8.2) g/dL Short CBC 08/10/18 Range/Units 03:58 WBC 6.6 (4.0-11.0) th/mm3 Hgb 9.2 L D (11.6-15.3) gm/dL Hct 27.0 L (35.0-46.0) % Plt Count 177 D (150-450) th/mm3 BMP 08/10/18 03:58 Sodium 137 Potassium 3.6 Chloride 105 Carbon Dioxide 25.7 BUN 20 H Creatinine 0.60 Calcium 8.1 L D Liver Function 08/10/18 Range/Units 03:58 Total Bilirubin 0.6 (0.2-1.0) mg/dL AST 8 L (15-37) U/L ALT 9 L (10-53) U/L Alkaline Phosphatase 52 (45-117) U/L Albumin 3.4 D (3.4-5.0) g/dL <Jeffery Villasenor - 08/10/18 12:20> - Imaging Impressions Abdomen/Pelvis CT 08/09/18 09:50 CONCLUSION: 1. Moderate left hydronephrosis and proximal ureter with 4 mm obstructing calculus in the proximal left ureter. 2. Lobulated soft tissue fullness between the bladder and rectum status post hysterectomy. It is uncertain whether this represents postsurgical scarring or mass. 3. Left deep pelvic nodular structures which may represent of adenopathy in the internal iliac chain or obturator chain. <Jeffery Villasenor - 08/10/18 12:20> Physical Exam Vital signs: Vital Signs 08/11/18 17:30 08/11/18 20:00 08/11/18 21:47 Temperature 97.5 F L 98.1 F Pulse Rate 91 H 85 Respiratory Rate 16 18 16 Blood Pressure 124/65 127/65 Pulse Oximetry 96 97 08/12/18 00:00 08/12/18 02:53 08/12/18 08:00 Temperature 98.1 F 97.8 F Pulse Rate 85 100 H Respiratory Rate 17 20 16 Blood Pressure 109/58 L 109/60 Pulse Oximetry 96 98 08/12/18 12:00 Temperature 97.7 F Pulse Rate 80 Respiratory Rate 16 Blood Pressure 116/65 Pulse Oximetry 96 Intake & Output 08/11/18 08/12/18 08/12/18 18:59 06:59 18:59 Intake Total 200 / 200 100 / 100 Output Total 350 / 350 Balance 200 / 200 -250 / -250 Weight 52 kg 52.4 kg Intake: IV 200 / 200 100 / 100 Cipro 400 MG/200 ML Inj 400 mg 200 / 200 In 200 ml @ 200 mls/hr IV.SIG Q12H [facility] Rx#:[id number] INVanz Inj 1,000 MG In NS Inj 100 / 100 100 ML @ 200 mls/hr IV.SIG Q24H [facility] Rx#:[id number] Oral 0 / 0 Output: Urine 350 / 350 Other: # Voids 1 Date of Last Bowel Movement 08/07/18 08/11/18 <Gerson Ugarte - 08/12/18 13:39> Vital Signs 08/09/18 13:29 08/09/18 14:52 08/09/18 15:32 Temperature 98.1 F Pulse Rate 86 86 Respiratory Rate 18 18 Blood Pressure 116/66 137/73 Pulse Oximetry 99 98 08/09/18 16:00 08/09/18 20:00 08/09/18 23:51 Temperature 98.0 F 97.1 F L 97.6 F Pulse Rate 80 92 H 96 H Respiratory Rate 14 16 16 Blood Pressure 96/51 L 94/53 L 86/51 L Pulse Oximetry 96 97 97 08/10/18 04:00 08/10/18 07:52 08/10/18 08:11 Temperature 96.5 F L 97.7 F Pulse Rate 84 87 Respiratory Rate 16 18 16 Blood Pressure 117/72 100/59 L Pulse Oximetry 100 97 08/10/18 11:35 Temperature 97.8 F Pulse Rate 103 H Respiratory Rate 20 Blood Pressure 102/57 L Pulse Oximetry 100 Intake & Output 08/09/18 08/10/18 08/10/18 18:59 06:59 18:59 Intake Total 200 / 200 1200 / 1200 1200 / 1200 Output Total 800 / 800 Balance 200 / 200 400 / 400 1200 / 1200 Weight 52 kg Intake: IV 200 / 200 1000 / 1000 1200 / 1200 1/2 Normal Saline Inj 1,000 ML 1000 / 1000 1000 / 1000 @ 132 mls/hr IV.CONT .Q7H35M [facility] Rx#:[id number] Cipro 400 MG/200 ML Inj 400 mg 200 / 200 200 / 200 In 200 ml @ 200 mls/hr IV.SIG Q12H [facility] Rx#:[id number] Oral 200 / 200 Output: Urine 800 / 800 Other: # Voids 1 Date of Last Bowel Movement 08/07/18 08/07/18 Weight On Admission 52 kg <Jeffery Villasenor - 08/10/18 12:20> Narrative: General: Well-developed, alert, and in no acute distress. Appears stated age HEENT: Atraumatic, PERRL, non-icteric sclera and no conjunctival injection, moist mucous membranes Neck: Supple, non-tender without masses or lymphadenopathy, trachea midline Cardiac: Regular rate and rhythm without murmurs or gallops Pulmonary: Non-labored breathing. Lungs clear to auscultation bilaterally with good air movement Abdomen: Normal bowel sounds, soft, mild tenderness to palpation over the left lower quadrant. No rebound or guarding. 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 She is now status post cystoscopy and left ureteral stent placement. Obstructing ureteral calculus and status post stent placement -Stent placement occurred this morning, awaiting postop recommendations from Dr. Puga -[facility] pain scale with morphine for breakthrough pain -Continue Flomax Urinary tract infection: She has a history of ESBL UTI on 07/05. We spoke extensively about the implications of this. Her current culture has not yet grown. Consult to infectious Contact precautions Continue ciprofloxacin and add ertapenem per infectious disease Urine showed immature growth, will continue to follow History of migraines -Rizatriptan as needed for symptomatic control Fluids: Adequate p.o. intake Electrolytes: monitor and replete as needed Nutrition: Regular diet GI prophylaxis: not indicated VTE prophylaxis: Early ambulation <Jeffery Villasenor - 08/10/18 16:11> - Attending Attestation See the residents documentation for details. I saw and evaluated the patient regarding the kelsey portions of this evaluation and agree with the residents findings and plans as written. Parts of this note were created using [employer] voice recognition software program. While efforts were made to correct any mistakes made by this software, some mistakes, errors, and omissions may remain in the final note that were not caught when the note was originally created. Plan of care was discussed and agreed upon with the patient as specifically documented in the above note. An opportunity to ask questions with explanation was provided. Patient voiced understanding on all information reviewed and discussed. 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
--- NOTE | 2018-08-10 12:53 | XR ---
EXAM DATE: 08/10/2018 12:19 PM EST AGE/SEX: 53 years / Female INDICATIONS: Post-op left ureteral stent placement. CLINICAL DATA: This is the patient's subsequent encounter. Patient reports that signs and symptoms h ave been present for 2 days and indicates a pain score of 0/10. MEDICAL/SURGICAL HISTORY: Renal calculi. section. Hysterectomy. COMPARISON: No prior exams available for comparison. FINDINGS: Double-J stent in good position on the left. No calcifications are seen in either kidney. 4 minimal calcification is seen adjacent to the stent level of L3 on the left. CONCLUSION: Stent in good position. Electronically signed by: Marco Antonio Pisano MD 08/10/2018 12:52 PM EST
--- NOTE | 2018-08-10 15:21 | P.CONID ---
History of Present Illness Service: Infectious Disease Consult date: 08/10/18 Requesting Physician: Gerson Ugarte Reason for Consult: Evaluate patient with UTI, assist with antibiotics, had a recent E. coli ES Primary Care Provider: Brian Robert MD History of Present Illness: Patient seen and examined. Records reviewed. Patient is a 53-year-old female presented to the hospital complaining of 3-day history of severe nausea and vomiting, and left-sided abdominal and flank pain. Patient had a recent hysterectomy and bilateral salpingectomy towards the end of June. She had 2 readmission for vaginal bleeding and had 2 operative procedures done during those 2 readmissions. Patient has had previous problem of UTI and she has increase episodes usually after sexual intercourse, and so she has had Macrobid which she usually takes when she has problem. After she had her hysterectomy she had noted an odor in her urine. She was apparently told that she had a UTI when she was admitted in July for, and she got some kind of IV antibiotic during that hospitalization. She did not get any other oral antibiotics after that. She was seen again and in July 17 she had the same complaints of smell urine, and very dark urine. She was given a 7-day course of Macrobid, and reportedly had a repeat urine culture which was negative. This time she did not have any urinary complaints. She thought she might have had some food poisoning because she was started having some nausea and vomiting about 3 days prior to admission. She also started having pain on the left side of her abdomen as well as in the left flank. She has not had any fever chills or sweats. She did not have any hematuria, or any dysuria. Has not any diarrhea. On presentation she is afebrile. Her WBC is normal. CT of the abdomen and pelvis is showing evidence of hydronephrosis on the left side and there is a stone obstructing it. Her urinalysis is showing pyuria and hematuria. There was a urine culture from July for that had E. coli ESBL positive. Patient has been seen by urologist, and she underwent cystoscopy and placement of a left ureteral stent. She has not had any nausea and vomiting since admission. Infectious disease consultation has been requested to assist with antibiotic management. Review of Systems Constitutional: Reports lack of energy, Denies chills, Denies fever(s), Denies night sweats Eyes: Denies discharge, Denies dry eyes Ears, Nose, Mouth, and Throat: Denies difficulty swallowing, Denies dry mouth, Denies facial pain, Denies headache(s), Denies nasal discharge, Denies pain with swallowing, Denies sore throat Cardiovascular: Denies chest pain, Denies shortness of breath Respiratory: Denies chest congestion, Denies cough, Denies shortness of breath Gastrointestinal: Reports abdominal pain, Reports nausea, Reports vomiting, Denies loose stools, Denies pain with swallowing Genitourinary: Denies difficulty urinating, Denies painful urination, Denies vaginal discharge Musculoskeletal: Reports back pain, Denies joint pain, Denies joint swelling Skin/Breast: Denies rash, Denies sores, Denies wounds Neurologic: Denies headache(s) PMFSH - History History Provided By: Patient - Medical History Medical History: Medical History (Last Reviewed 08/10/18 @ 15:17 by Sushma Garcia MD) H/O: hysterectomy Heavy menses History of anesthesia reaction IBS (irritable bowel syndrome) Insomnia MDRO (multiple drug resistant organisms) resistance Onset Date: ~07/05/18 Migraines Painful menstrual flow - Surgical History Surgical History: Surgical History (Last Reviewed 08/10/18 @ 15:17 by Sushma Garcia MD) H/O breast biopsy H/O colonoscopy H/O right knee surgery History of dental surgery Previous section S/P LASIK surgery of both eyes - Tobacco History Second Hand Smoke Exposure: No Smoking Status: Never smoker - Alcohol History How Often Do You Have a Drink Containing Alcohol: Never - Substance Use History Substance History: No History of Abuse - Travel History Recent Travel in the [place] Within the Last 8 Weeks: No Recent Travel Out of the Country Within the Last 8 Weeks: No - Immunization History Tetanus Immunization: Unsure Medications and Allergies Active Medications: Active Medications Acetaminophen (Tylenol) 650 mg PO Q4H PRN PRN Reason: Temp > 100.4 Acetaminophen (Tylenol) 650 mg PO Q6HR PRN PRN Reason: PAIN SCALE 1 TO 2 IF HERLINDA PO Acetaminophen/Butalbital/Caffeine (Fioricet 50-325-40) 2 tab PO Q4H PRN PRN Reason: Migraine Headache Hydrocodone Bitart/Acetaminophen ([place] 10/325) 1 tab PO Q4H PRN PRN Reason: PAIN SCALE 6 TO 10 Last Admin: 08/10/18 04:05 Dose: 1 tab Hydrocodone Bitart/Acetaminophen ([place] 5/325) 1 tab PO Q4H PRN PRN Reason: PAIN SCALE 3 TO 5 Al Hydroxide/Mg Hydroxide (Milk Of Magnesia Liq) 30 ml PO Q12H PRN PRN Reason: Mild Constipation Bisacodyl (Dulcolax Supp) 10 mg RECTAL DAILY PRN PRN Reason: SEVERE CONSITIPATION Sodium Chloride (1/2 Normal Saline Inj) 1,000 mls @ 132 mls/hr IV.CONT .Q7H35M [facility] Last Infusion: 08/10/18 10:52 Dose: Infused Ciprofloxacin/Dextrose (Cipro 400 Mg/200 Ml Inj) 400 mg in 200 mls @ 200 mls/ hr IV.SIG Q12H [facility] Last Infusion: 08/10/18 07:46 Dose: Infused Lactated Ringer's (Lr 1000 Ml Inj) 1,000 mls @ 30 mls/hr IV.SIG .Q24H [facility] Stop: 08/11/18 10:29 Last Admin: 08/10/18 12:41 Dose: Not Given Sodium Chloride (Ns Inj) 500 mls @ 30 mls/hr IV.SIG .Q10H ONE Stop: 08/11/18 03:39 Last Admin: 08/10/18 12:42 Dose: Not Given Lactulose (Lactulose Liq) 30 ml PO DAILY PRN PRN Reason: SEVERE CONSITIPATION Morphine Sulfate (Morphine Inj) 4 mg IV.PUSH Q3H PRN PRN Reason: BREAKTHROUGH PAIN Last Admin: 08/10/18 07:29 Dose: 4 mg Naloxone HCl (Narcan Inj) 0.4 mg IV.PUSH UNSCH PRN PRN Reason: SEE LABEL COMMENTS Ondansetron HCl (Zofran Inj) 4 mg IV.PUSH Q6H PRN PRN Reason: NAUSEA OR VOMITING Pt Own Med: (Rizatriptan 10mg) 0 each PO Q2H PRN PRN Reason: migraine Senna/Docusate Sodium (Patricia-Colace) 1 tab PO BID [facility] Last Admin: 08/10/18 10:45 Dose: Not Given Sennosides (Senokot) 17.2 mg PO Q12H PRN PRN Reason: Moderate Constipation Sodium Chloride (Ns Flush) 2 ml IV.FLUSH BID [facility] Last Admin: 08/10/18 10:48 Dose: Not Given Sodium Chloride (Ns Flush) 2 ml IV.FLUSH PRN PRN PRN Reason: FLUSH AFTER USING IV ACCESS Tamsulosin HCl (Flomax) 0.4 mg PO DAILY [facility] Last Admin: 08/10/18 10:44 Dose: Not Given Temazepam (Restoril) 15 mg PO HS PRN PRN Reason: INSOMNIA Allergies Allergy/AdvReac Type Severity Reaction Status Date / Time No Known Allergies Allergy Verified 07/17/18 22:38 Home Medications Medication Instructions Recorded Confirmed Type [id number] 2 cap PO Q4H PRN 06/17/18 08/09/18 History dicyclomine 10 mg PO QID 06/17/18 08/09/18 History rizatriptan 10 mg PO Q2-4H PRN 06/17/18 08/09/18 History temazepam 1 cap PO HS 06/17/18 08/09/18 History Exam Vital signs: Vital Signs 08/09/18 15:32 08/09/18 16:00 08/09/18 20:00 Temperature 98.1 F 98.0 F 97.1 F L Pulse Rate 80 92 H Respiratory Rate 14 16 Blood Pressure 96/51 L 94/53 L Pulse Oximetry 96 97 08/09/18 23:51 08/10/18 04:00 08/10/18 07:52 Temperature 97.6 F 96.5 F L Pulse Rate 96 H 84 Respiratory Rate 16 16 18 Blood Pressure 86/51 L 117/72 Pulse Oximetry 97 100 08/10/18 08:11 08/10/18 11:35 08/10/18 11:50 Temperature 97.7 F 97.8 F Pulse Rate 87 103 H 78 Respiratory Rate 16 20 20 Blood Pressure 100/59 L 102/57 L 104/55 L Pulse Oximetry 97 100 96 08/10/18 12:05 08/10/18 12:20 08/10/18 12:37 Temperature 97.8 F Pulse Rate 73 71 72 Respiratory Rate 16 16 20 Blood Pressure 89/53 L 90/51 L 93/53 L Pulse Oximetry 96 95 95 08/10/18 13:33 Temperature 97.8 F Pulse Rate 77 Respiratory Rate 16 Blood Pressure 103/59 L Pulse Oximetry Intake & Output 08/09/18 08/10/18 08/10/18 18:59 06:59 18:59 Intake Total 200 / 200 1200 / 1200 1200 / 1200 Output Total 800 / 800 Balance 200 / 200 400 / 400 1200 / 1200 Weight 52 kg Intake: IV 200 / 200 1000 / 1000 1200 / 1200 1/2 Normal Saline Inj 1,000 ML 1000 / 1000 1000 / 1000 @ 132 mls/hr IV.CONT .Q7H35M [facility] Rx#:[id number] Cipro 400 MG/200 ML Inj 400 mg 200 / 200 200 / 200 In 200 ml @ 200 mls/hr IV.SIG Q12H [facility] Rx#:[id number] Oral 200 / 200 Output: Urine 800 / 800 Other: # Voids 1 Date of Last Bowel Movement 08/07/18 08/07/18 Weight On Admission 52 kg Narrative: Physical examination GENERAL: Patient is a thin, well-developed female, awake and alert, not in respiratory distress. SKIN: Cool and dry. No generalized rash, no ecchymoses and no evidence of embolic lesions. HEAD: Atraumatic. Normocephalic. No temporal wasting, or tenderness. EYES: [place] conjunctiva. No petechia or hemorrhage. Pupils equal, round and reactive to light. Extraocular movements full and intact. No scleral icterus. No injection or drainage. EARS, NOSE AND THROAT: Nose without bleeding or purulent nasal discharge. No sinus tenderness. Mucous membranes pink and moist. No oral lesions noted. No exudate. NECK: Trachea midline. Supple and not tender, no meningeal signs CARDIOVASCULAR: Regular rate and rhythm. No murmurs, rubs or gallops heard RESPIRATORY: Clear to auscultation. Breath sounds equal bilaterally. No rales , wheezing or rhonchi ABDOMEN: Soft, mildly distended, mild tender on L, no guarding, no rebound. Bowel sounds present and normoactive. BACK: Tender L CVA EXTREMITIES: No clubbing, cyanosis, or edema. No joint effusion, has good ROM. No calf tenderness. Well perfused and warm. NEUROLOGICAL: Awake and alert. Cranial nerves grossly intact. Motor grossly within normal limits. PSYCHIATRIC: Normal affect, calm and cooperative. LINE: No evidence of infection Results - Labs CBC & Chem 7: 08/10/18 03:58 08/10/18 03:58 Labs: Laboratory Results - last 24 hr 08/10/18 08/10/18 03:58 03:58 WBC 6.6 RBC 3.20 L Hgb 9.2 L D Hct 27.0 L MCV 84.6 MCH 28.9 MCHC 34.1 RDW 12.9 Plt Count 177 D MPV 6.9 L Neut % (Auto) 51.9 Lymph % (Auto) 35.9 [place] % (Auto) 9.9 H Eos % (Auto) 2.1 Baso % (Auto) 0.2 Neut # (Auto) 3.4 Lymph # (Auto) 2.4 [place] # (Auto) 0.7 Eos # (Auto) 0.1 Baso # (Auto) 0.0 WBC Differential . Differential Comment Auto diff final Sodium 137 Potassium 3.6 Chloride 105 Carbon Dioxide 25.7 Anion Gap 6 BUN 20 H Creatinine 0.60 Estimated GFR Greater than 89 Random Glucose 85 Calcium 8.1 L D Total Bilirubin 0.6 AST 8 L ALT 9 L Alkaline Phosphatase 52 Total Protein 6.2 L D Albumin 3.4 D - Imaging Impressions Abdomen X-Ray 08/10/18 00:00 CONCLUSION: Stent in good position. Assessment and Plan - Plan Impression Complicated UTI, with obstruction due to stone - S/P cysto and stent placement Previous UTI with E coli ESBL S/P hysterectomy and jose salpingectomy Recommendation Repeat UA and C/S patient is on Cipro Will add Invanz Follow C/S and determine course of Abx Monitor progress I will follow along with you Thank you for this consultation Explained plan to the patient and Spoke with Dr Villasenor ([facility] resident)
[2018-08-10 16:36] LABS: Bacteria,Urine Few /hpf; Bilirubin,Urine Negative (Negative); Color,Urine Red (Yellw/Straw); Glucose,Urine (UA) Negative (Negative); Leukocyte Esterase,Urine Small (Negative); Mucus,Urine Few /lpf (Occasional); Nitrite,Urine Negative (Negative); Specific Gravity,Urine 1.012 (1.002-1.035); Squamous Epithelial Cell,Urine 1 /hpf (0-5)
[2018-08-10 16:37] LABS: Clarity,Urine Hazy (Clear)
--- NOTE | 2018-08-10 19:09 | ECG ---
Date Performed: 08/10/2018 Time Performed: 08:26:38 PTAGE: 53 years EKG: Sinus rhythm LOW QRS VOLTAGE IN PRECORDIAL LEADS POSSIBLE RIGHT VENTRICULAR CONDUCTION DELAY BORDERLINE ECG INTER PRETATION BASED ON A DEFAULT AGE OF 40 YEARS PREVIOUS TRACING : 06/17/2018 12.53 Since the previous tracing, no significant change not ed DOCTOR: Kelvin Regalado Interpretating Date/Time 08/10/2018 19:08:29
[2018-08-11] MEDS: Senna/Docusate Sodium 8.6/50 MG Tablet PO SCH ×4 (00:17→21:40)
[2018-08-11] MEDS: Ciprofloxacin 400 MG/200 ML 400 MG/200 ML PIGGYBACK IV.SIG SCH (06:10)
[2018-08-11 08:51] LABS: Baso % (Auto) 0.2 % (0.0-2.0); Eos % (Auto) 0.4 % (0.0-4.0); Hematocrit 27.1 % (35.0-46.0); Hemoglobin 9.5 gm/dL (11.6-15.3); Lymph # (Auto) 1.7 th/mm3 (1.0-4.8); Lymph % (Auto) 19.9 % (9.0-44.0); Mean Corpuscular HGB Conc 35.2 % (32.0-36.0); Mean Corpuscular Hemoglobin 29.6 pg (27.0-34.0); Mean Corpuscular Volume 84.1 fL (80.0-100.0); Mean Platelet Volume 6.9 fL (7.0-11.0); Mono # (Auto) 0.9 th/mm3 (0.0-0.9); Mono % (Auto) 10.4 % (0.0-8.0); Neut % (Auto) 69.1 % (16.0-70.0); Platelet Count 200 th/mm3 (150-450); Red Blood Count 3.22 mil/mm3 (4.00-5.30); Red Cell Distribution Width 12.7 % (11.6-17.2); White Blood Count 8.7 th/mm3 (4.0-11.0)
[2018-08-11 09:10] LABS: Anion Gap 8 meq/L (5-15); Blood Urea Nitrogen 13 mg/dL (7-18); Calcium 8.3 mg/dL (8.5-10.1); Carbon Dioxide 25.1 meq/L (21.0-32.0); Chloride 103 meq/L (98-107); Glomerular Filtration Rate Greater Than 89 mL/min (>89); Glucose,Random 94 mg/dL (74-106); Potassium 3.4 meq/L (3.5-5.1); Sodium 136 meq/L (136-145)
--- NOTE | 2018-08-11 10:20 | P.PNFP ---
Subjective Interval history: Patient seen and examined today. No acute events overnight. Denies nausea, vomiting, fever, chills abdominal pain, chest pain, shortness of breath, lightheadedness, dizziness. Patient reports she continues to have difficulty eating, early satiety. Noted some mild bloody urine yesterday, has resolved by today. No other complaints today. <ChristyWaqas - 08/11/18 10:20> Results - Labs Result diagrams: 08/12/18 08:14 08/12/18 08:14 <Gerson Ugarte - 08/12/18 13:43> Abnormal lab results 08/12/18 08/12/18 Range/Units 08:14 08:14 RBC 3.18 L (4.00-5.30) mil/mm3 Hgb 9.2 L (11.6-15.3) gm/dL Hct 27.1 L (35.0-46.0) % MPV 6.8 L (7.0-11.0) fL [place] % (Auto) 10.5 H (0.0-8.0) % Potassium 3.2 L (3.5-5.1) meq/L Creatinine 0.43 L (0.50-1.00) mg/dL Calcium 8.2 L (8.5-10.1) mg/dL Short CBC 08/12/18 Range/Units 08:14 WBC 6.1 (4.0-11.0) th/mm3 Hgb 9.2 L (11.6-15.3) gm/dL Hct 27.1 L (35.0-46.0) % Plt Count 186 (150-450) th/mm3 [facility] 08/12/18 08:14 Sodium 139 Potassium 3.2 L Chloride 104 Carbon Dioxide 27.7 BUN 16 Creatinine 0.43 L Calcium 8.2 L <Gerson Ugarte - 08/12/18 13:43> Abnormal lab results 08/10/18 08/11/18 08/11/18 Range/Units 15:48 08:20 08:20 RBC 3.22 L (4.00-5.30) mil/mm3 Hgb 9.5 L (11.6-15.3) gm/dL Hct 27.1 L (35.0-46.0) % MPV 6.9 L (7.0-11.0) fL [place] % (Auto) 10.4 H (0.0-8.0) % Potassium 3.4 L (3.5-5.1) meq/L Calcium 8.3 L (8.5-10.1) mg/dL Urine Clarity Hazy H (Clear) Urine Protein 100 H (Neg-Trace) mg/dL Urine Occult Blood Large H (Negative) Ur Leukocyte Esterase Small H (Negative) Urine WBC 141 H (0-5) /hpf Urine WBC Clumps Occasional H (None) Urine Bacteria Few H (None) /hpf Urine Mucus Few H (Occasional) /lpf Short CBC 08/11/18 Range/Units 08:20 WBC 8.7 (4.0-11.0) th/mm3 Hgb 9.5 L (11.6-15.3) gm/dL Hct 27.1 L (35.0-46.0) % Plt Count 200 (150-450) th/mm3 BMP 08/11/18 08:20 Sodium 136 Potassium 3.4 L Chloride 103 Carbon Dioxide 25.1 BUN 13 Creatinine 0.51 Calcium 8.3 L Urine 08/10/18 Range/Units 15:48 Urine Color Red (Yellw/Straw) Urine Clarity Hazy H (Clear) Urine pH 6.0 (5.0-8.5) Ur Specific [place] 1.012 (1.002-1.035) Urine Protein 100 H (Neg-Trace) mg/dL Urine Glucose (UA) Negative (Negative) mg/dL <Jordi Harrison - 08/11/18 10:20> - Imaging Impressions Abdomen X-Ray 08/10/18 00:00 CONCLUSION: Stent in good position. <Jordi Harrison - 08/11/18 10:20> Physical Exam Vital signs: Vital Signs 08/11/18 17:30 08/11/18 20:00 08/11/18 21:47 Temperature 97.5 F L 98.1 F Pulse Rate 91 H 85 Respiratory Rate 16 18 16 Blood Pressure 124/65 127/65 Pulse Oximetry 96 97 08/12/18 00:00 08/12/18 02:53 08/12/18 08:00 Temperature 98.1 F 97.8 F Pulse Rate 85 100 H Respiratory Rate 17 20 16 Blood Pressure 109/58 L 109/60 Pulse Oximetry 96 98 08/12/18 12:00 Temperature 97.7 F Pulse Rate 80 Respiratory Rate 16 Blood Pressure 116/65 Pulse Oximetry 96 Intake & Output 08/11/18 08/12/18 08/12/18 18:59 06:59 18:59 Intake Total 200 / 200 100 / 100 Output Total 350 / 350 Balance 200 / 200 -250 / -250 Weight 52 kg 52.4 kg Intake: IV 200 / 200 100 / 100 Cipro 400 MG/200 ML Inj 400 mg 200 / 200 In 200 ml @ 200 mls/hr IV.SIG Q12H [facility] Rx#:[id number] INVanz Inj 1,000 MG In NS Inj 100 / 100 100 ML @ 200 mls/hr IV.SIG Q24H [facility] Rx#:[id number] Oral 0 / 0 Output: Urine 350 / 350 Other: # Voids 1 Date of Last Bowel Movement 08/07/18 08/11/18 <Gerson Ugarte - 08/12/18 13:43> Vital Signs 08/10/18 11:35 08/10/18 11:50 08/10/18 12:05 Temperature 97.8 F Pulse Rate 103 H 78 73 Respiratory Rate 20 20 16 Blood Pressure 102/57 L 104/55 L 89/53 L Pulse Oximetry 100 96 96 08/10/18 12:20 08/10/18 12:37 08/10/18 13:33 Temperature 97.8 F 97.8 F Pulse Rate 71 72 77 Respiratory Rate 16 20 16 Blood Pressure 90/51 L 93/53 L 103/59 L Pulse Oximetry 95 95 08/10/18 15:53 08/10/18 16:07 08/10/18 17:49 Temperature 97.5 F L Pulse Rate 81 Respiratory Rate 18 16 18 Blood Pressure 98/54 L Pulse Oximetry 97 08/10/18 20:00 08/10/18 21:18 08/11/18 00:00 Temperature 98.0 F 98.2 F Pulse Rate 88 66 Respiratory Rate 18 14 18 Blood Pressure 95/50 L 108/55 L Pulse Oximetry 97 96 08/11/18 06:23 08/11/18 06:43 08/11/18 08:00 Temperature 98.1 F 98.4 F Pulse Rate 82 80 Respiratory Rate 14 16 16 Blood Pressure 136/66 106/62 Pulse Oximetry 98 98 Intake & Output 08/10/18 08/11/18 08/11/18 18:59 06:59 18:59 Intake Total 1200 / 1200 300 / 300 200 / 200 Balance 1200 / 1200 300 / 300 200 / 200 Intake: IV 1200 / 1200 300 / 300 200 / 200 1/2 Normal Saline Inj 1,000 ML 1000 / 1000 @ 132 mls/hr IV.CONT .Q7H35M [facility] Rx#:[id number] Cipro 400 MG/200 ML Inj 400 mg 200 / 200 200 / 200 200 / 200 In 200 ml @ 200 mls/hr IV.SIG Q12H [facility] Rx#:[id number] INVanz Inj 1,000 MG In NS Inj 100 / 100 100 ML @ 200 mls/hr IV.SIG Q24H [facility] Rx#:[id number] Other: Date of Last Bowel Movement 08/07/18 <Jordi Harrison - 08/11/18 10:20> Narrative: General: Well-developed, alert, and in no acute distress. Appears stated age HEENT: Atraumatic, PERRL, non-icteric sclera and no conjunctival injection, moist mucous membranes Neck: Supple, non-tender without masses or lymphadenopathy, trachea midline Cardiac: Regular rate and rhythm without murmurs or gallops Pulmonary: Non-labored breathing. Lungs clear to auscultation bilaterally with good air movement Abdomen: Normal bowel sounds, soft, mild tenderness to palpation over the left lower quadrant. No rebound or guarding. Left-sided CVA tenderness. 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 She is now status post cystoscopy and left ureteral stent placement. Obstructing ureteral calculus and status post stent placement -Stent placement 08/10/18 -[place] pain scale with morphine for breakthrough pain -Continue Flomax Urinary tract infection: She has a history of ESBL UTI on 07/05. We spoke extensively about the implications of this. Her current culture has not yet grown. Consult to infectious disease, Continue ciprofloxacin and add ertapenem per infectious disease Contact precautions Urine showed mixed [place], f/u second culture History of migraines -Rizatriptan as needed for symptomatic control Fluids: Adequate p.o. intake Electrolytes: monitor and replete as needed Nutrition: Regular diet GI prophylaxis: not indicated VTE prophylaxis: Early ambulation <Jordi Harrison - 08/11/18 10:20> - Attending Attestation See the residents documentation for details. I saw and evaluated the patient regarding the kelsey portions of this evaluation and agree with the residents findings and plans as written. Parts of this note were created using [employer] voice recognition software program. While efforts were made to correct any mistakes made by this software, some mistakes, errors, and omissions may remain in the final note that were not caught when the note was originally created. Plan of care was discussed and agreed upon with the patient as specifically documented in the above note. An opportunity to ask questions with explanation was provided. Patient voiced understanding on all information reviewed and discussed. 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
--- NOTE | 2018-08-11 10:46 | P.PNURO ---
Subjective Patient symptoms today: Status post left ureteral stent placement yesterday. Overall feels much better. Objective Vital Signs: Vital Signs 08/10/18 11:35 08/10/18 11:50 08/10/18 12:05 Temperature 97.8 F Pulse Rate 103 H 78 73 Respiratory Rate 20 20 16 Blood Pressure 102/57 L 104/55 L 89/53 L Pulse Oximetry 100 96 96 08/10/18 12:20 08/10/18 12:37 08/10/18 13:33 Temperature 97.8 F 97.8 F Pulse Rate 71 72 77 Respiratory Rate 16 20 16 Blood Pressure 90/51 L 93/53 L 103/59 L Pulse Oximetry 95 95 08/10/18 15:53 08/10/18 16:07 08/10/18 17:49 Temperature 97.5 F L Pulse Rate 81 Respiratory Rate 18 16 18 Blood Pressure 98/54 L Pulse Oximetry 97 08/10/18 20:00 08/10/18 21:18 08/11/18 00:00 Temperature 98.0 F 98.2 F Pulse Rate 88 66 Respiratory Rate 18 14 18 Blood Pressure 95/50 L 108/55 L Pulse Oximetry 97 96 08/11/18 06:23 08/11/18 06:43 08/11/18 08:00 Temperature 98.1 F 98.4 F Pulse Rate 82 80 Respiratory Rate 14 16 16 Blood Pressure 136/66 106/62 Pulse Oximetry 98 98 Intake & Output 08/10/18 08/11/18 08/11/18 18:59 06:59 18:59 Intake Total 1200 / 1200 300 / 300 200 / 200 Balance 1200 / 1200 300 / 300 200 / 200 Intake: IV 1200 / 1200 300 / 300 200 / 200 1/2 Normal Saline Inj 1,000 ML 1000 / 1000 @ 132 mls/hr IV.CONT .Q7H35M PRIYA Rx#:[id number] Cipro 400 MG/200 ML Inj 400 mg 200 / 200 200 / 200 200 / 200 In 200 ml @ 200 mls/hr IV.SIG Q12H PRIYA Rx#:[id number] INVanz Inj 1,000 MG In NS Inj 100 / 100 100 ML @ 200 mls/hr IV.SIG Q24H PRIYA Rx#:[id number] Other: Date of Last Bowel Movement 08/07/18 Result Diagrams: 08/11/18 08:20 08/11/18 08:20 Imaging: Impressions Abdomen X-Ray 08/10/18 00:00 CONCLUSION: Stent in good position. Postoperative KUB reviewed. Left stent in good position with ureteral calculus clearly visualized adjacent to the stent. Medications and IVs: Active Medications Generic Name Dose Route Start Last Admin Trade Name Freq PRN Reason Stop Dose Admin Acetaminophen 650 mg 08/09/18 14:12 Tylenol PO Q4H PRN Temp > 100.4 Acetaminophen 650 mg 08/09/18 14:12 Tylenol PO Q6HR PRN PAIN SCALE 1 TO 2 IF HERLINDA PO Acetaminophen/Butalbital/Caffeine 2 tab 08/09/18 15:35 Fioricet 50-325-40 PO Q4H PRN Migraine Headache Hydrocodone Bitart/Acetaminophen 1 tab 08/09/18 14:12 08/11/18 06:09 [place] 10/325 PO 1 tab Q4H PRN Administration PAIN SCALE 6 TO 10 Hydrocodone Bitart/Acetaminophen 1 tab 08/09/18 14:12 [place] 5/325 PO Q4H PRN PAIN SCALE 3 TO 5 Al Hydroxide/Mg Hydroxide 30 ml 08/09/18 14:12 Milk Of Magnesia Liq PO Q12H PRN Mild Constipation Bisacodyl 10 mg 08/09/18 14:12 Dulcolax Supp RECTAL DAILY PRN SEVERE CONSITIPATION Ciprofloxacin/Dextrose 400 mg in 200 mls @ 200 mls/hr 08/10/18 07:00 08:16 Cipro 400 Mg/200 Ml Inj IV.SIG Infused Q12H PRIYA Infusion Ertapenem 1,000 mg/ Sodium 100 mls @ 200 mls/hr 08/10/18 19:00 08/10/18 19:22 Chloride IV.SIG Infused Q24H PRIYA Infusion Lactulose 30 ml 08/09/18 14:12 Lactulose Liq PO DAILY PRN SEVERE CONSITIPATION Morphine Sulfate 4 mg 08/09/18 14:12 08/10/18 07:29 Morphine Inj IV.PUSH 4 mg Q3H PRN Administration BREAKTHROUGH PAIN Naloxone HCl 0.4 mg 08/09/18 14:12 Narcan Inj IV.PUSH UNSCH PRN SEE LABEL COMMENTS Ondansetron HCl 4 mg 08/09/18 14:12 Zofran Inj IV.PUSH Q6H PRN NAUSEA OR VOMITING Pt Own Med: 0 each 08/09/18 15:35 Rizatriptan 10mg PO Q2H PRN migraine Senna/Docusate Sodium 1 tab 08/09/18 21:00 08/11/18 00:17 Patricia-Colace PO Not Given BID PRIYA Sennosides 17.2 mg 08/09/18 14:12 Senokot PO Q12H PRN Moderate Constipation Sodium Chloride 2 ml 08/09/18 21:00 08/10/18 22:16 Ns Flush IV.FLUSH 2 ml BID PRIYA Administration Sodium Chloride 2 ml 08/09/18 14:12 Ns Flush IV.FLUSH PRN PRN FLUSH AFTER USING IV ACCESS Tamsulosin HCl 0.4 mg 08/09/18 15:30 08/10/18 10:44 Flomax PO Not Given DAILY PRIYA Temazepam 15 mg 08/09/18 14:12 Restoril PO HS PRN INSOMNIA Assessment and Plan - Assessment (1) Ureteral calculus, left Code(s): N20.1 - Calculus of ureter Status: Acute - Plan Urologic impression: 1. 4 mm left ureteral calculus. 2. Status post placement of left ureteral stent. Plan: 1. Strain all urine 2. Tamsulosin 0.4 mg by mouth daily 3. N.p.o. after midnight 4. Patient is scheduled to undergo left-sided extrapleural shockwave lithotripsy tomorrow by my associate Dr. Garcia.
--- NOTE | 2018-08-11 12:20 | P.PNID ---
Subjective Remarks: Patient is a 53-year-old female presented to the hospital complaining of 3-day history of severe nausea and vomiting, and left-sided abdominal and flank pain. Patient had a recent hysterectomy and bilateral salpingectomy towards the end of June. She had 2 readmission for vaginal bleeding and had 2 operative procedures done during those 2 readmissions. Patient has had previous problem of UTI and she has increase episodes usually after sexual intercourse, and so she has had Macrobid which she usually takes when she has problem. After she had her hysterectomy she had noted an odor in her urine. She was apparently told that she had a UTI when she was admitted in July for, and she got some kind of IV antibiotic during that hospitalization. She did not get any other oral antibiotics after that. She was seen again and in July 17 she had the same complaints of smell urine, and very dark urine. She was given a 7-day course of Macrobid, and reportedly had a repeat urine culture which was negative. This time she did not have any urinary complaints. She thought she might have had some food poisoning because she was started having some nausea and vomiting about 3 days prior to admission. She also started having pain on the left side of her abdomen as well as in the left flank. She has not had any fever chills or sweats. She did not have any hematuria, or any dysuria. Has not any diarrhea. On presentation she is afebrile. Her WBC is normal. CT of the abdomen and pelvis is showing evidence of hydronephrosis on the left side and there is a stone obstructing it. Her urinalysis is showing pyuria and hematuria. There was a urine culture from July for that had E. coli ESBL positive. Patient has been seen by urologist, and she underwent cystoscopy and placement of a left ureteral stent. She has not had any nausea and vomiting since admission. Infectious disease consultation has been requested to assist with antibiotic management. Notes reviewed Temps ok Having pain L side of abdomen and flank - just got pain meds \Urology notes reviewed For lithotripsy tomorrow UC 08/10 negative so far Antibiotics: Invanz Cipro Lines: PIV Past Medical History: H/O: hysterectomy Heavy menses History of anesthesia reaction IBS (irritable bowel syndrome) Insomnia MDRO (multiple drug resistant organisms) resistance Onset Date: ~07/05/18 Migraines Painful menstrual flow H/O colonoscopy H/O right knee surgery History of dental surgery Previous section S/P LASIK surgery of both eyes Allergies/Adverse Reactions: Allergies No Known Allergies Allergy (Verified 07/17/18 22:38) Objective Vital Signs 08/10/18 12:20 08/10/18 12:37 08/10/18 13:33 Temperature 97.8 F 97.8 F Pulse Rate 71 72 77 Respiratory Rate 16 20 16 Blood Pressure 90/51 L 93/53 L 103/59 L Pulse Oximetry 95 95 08/10/18 15:53 08/10/18 16:07 08/10/18 17:49 Temperature 97.5 F L Pulse Rate 81 Respiratory Rate 18 16 18 Blood Pressure 98/54 L Pulse Oximetry 97 08/10/18 20:00 08/10/18 21:18 08/11/18 00:00 Temperature 98.0 F 98.2 F Pulse Rate 88 66 Respiratory Rate 18 14 18 Blood Pressure 95/50 L 108/55 L Pulse Oximetry 97 96 08/11/18 06:23 08/11/18 06:43 08/11/18 08:00 Temperature 98.1 F 98.4 F Pulse Rate 82 80 Respiratory Rate 14 16 16 Blood Pressure 136/66 106/62 Pulse Oximetry 98 98 Intake & Output 08/10/18 08/11/18 08/11/18 18:59 06:59 18:59 Intake Total 1200 / 1200 300 / 300 200 / 200 Balance 1200 / 1200 300 / 300 200 / 200 Intake: IV 1200 / 1200 300 / 300 200 / 200 1/2 Normal Saline Inj 1,000 ML 1000 / 1000 @ 132 mls/hr IV.CONT .Q7H35M PRIYA Rx#:[id number] Cipro 400 MG/200 ML Inj 400 mg 200 / 200 200 / 200 200 / 200 In 200 ml @ 200 mls/hr IV.SIG Q12H PRIYA Rx#:[id number] INVanz Inj 1,000 MG In NS Inj 100 / 100 100 ML @ 200 mls/hr IV.SIG Q24H PRIYA Rx#:[id number] Other: Date of Last Bowel Movement 08/07/18 08/10/18 15:48 Clean Catch Urine Urine Culture - Preliminary No growth in 24 hours 08/09/18 11:40 Clean Catch Urine Urine Culture - Final 50-100,000 cfu/mL mixed macarena (probable contaminants ) Lab - Hematology Results 08/10/18 08/11/18 03:58 08:20 WBC 6.6 8.7 RBC 3.20 L 3.22 L Hgb 9.2 L D 9.5 L Hct 27.0 L 27.1 L MCV 84.6 84.1 MCH 28.9 29.6 MCHC 34.1 35.2 RDW 12.9 12.7 Plt Count 177 D 200 MPV 6.9 L 6.9 L Neut % (Auto) 51.9 69.1 Lymph % (Auto) 35.9 19.9 [place] % (Auto) 9.9 H 10.4 H Eos % (Auto) 2.1 0.4 Baso % (Auto) 0.2 0.2 Neut # (Auto) 3.4 6.0 Lymph # (Auto) 2.4 1.7 [place] # (Auto) 0.7 0.9 Eos # (Auto) 0.1 0.0 Baso # (Auto) 0.0 0.0 WBC Differential . . Differential Comment Auto diff final Auto diff final Lab - Chemistry Results 08/10/18 08/11/18 03:58 08:20 Sodium 137 136 Potassium 3.6 3.4 L Chloride 105 103 Carbon Dioxide 25.7 25.1 Anion Gap 6 8 BUN 20 H 13 Creatinine 0.60 0.51 Estimated GFR Greater than 89 Greater than 89 Random Glucose 85 94 Calcium 8.1 L D 8.3 L Total Bilirubin 0.6 AST 8 L ALT 9 L Alkaline Phosphatase 52 Total Protein 6.2 L D Albumin 3.4 D Imaging: ITS Impressions Abdomen/Pelvis CT 08/09/18 09:50 CONCLUSION: 1. Moderate left hydronephrosis and proximal ureter with 4 mm obstructing calculus in the proximal left ureter. 2. Lobulated soft tissue fullness between the bladder and rectum status post hysterectomy. It is uncertain whether this represents postsurgical scarring or mass. 3. Left deep pelvic nodular structures which may represent of adenopathy in the internal iliac chain or obturator chain. Abdomen X-Ray 08/10/18 00:00 CONCLUSION: Stent in good position. Physical Exam: GENERAL: awake and alert, not in respiratory distress. SKIN: Cool and dry. No generalized rash HEAD: Atraumatic. Normocephalic. No temporal wasting, or tenderness. EYES: [place] conjunctiva. No petechia or hemorrhage. No scleral icterus. No injection or drainage. EARS, NOSE AND THROAT: Nose without bleeding or purulent nasal discharge. No sinus tenderness. Mucous membranes pink and moist. No oral lesions noted. No exudate. NECK: Trachea midline. Supple and not tender, no meningeal signs CARDIOVASCULAR: Regular rate and rhythm. No murmurs, rubs or gallops heard RESPIRATORY: Clear to auscultation. Breath sounds equal bilaterally. No rales , wheezing or rhonchi ABDOMEN: Soft, not distended, mild tender on L, no guarding, no rebound. Bowel sounds present and normoactive. BACK: Tender L CVA EXTREMITIES: No clubbing, cyanosis, or edema. No joint effusion, has good ROM. No calf tenderness. Well perfused and warm. NEUROLOGICAL: Awake and alert. Cranial nerves grossly intact. Motor grossly within normal limits. PSYCHIATRIC: Normal affect, calm and cooperative. LINE: No evidence of infection Assessment and Plan - Plan Impression Complicated UTI, with obstruction due to stone - S/P cysto and stent placement Previous UTI with E coli ESBL S/P hysterectomy and jose salpingectomy Recommendation Change Cipro to po Continue Invanz Follow C/S and determine course of Abx Monitor progress For lithotripsy tomorrow Explained plan to the patient
[2018-08-11] MEDS: Morphine Inj 4 MG/ML Vial IV.PUSH PRN ×2 (18:25→22:37)
[2018-08-11] MEDS: Ciprofloxacin 500 MG Tablet PO SCH (21:40)
[2018-08-12] MEDS: Ciprofloxacin 500 MG Tablet PO SCH ×2 (08:40→21:03)
[2018-08-12] MEDS: Senna/Docusate Sodium 8.6/50 MG Tablet PO SCH ×2 (08:41→21:06)
[2018-08-12] MEDS: Morphine Inj 4 MG/ML Vial IV.PUSH PRN (08:51)
[2018-08-12 08:57] LABS: Baso % (Auto) 0.4 % (0.0-2.0); Eos # (Auto) 0.1 th/mm3 (0.0-0.4); Eos % (Auto) 1.7 % (0.0-4.0); Hematocrit 27.1 % (35.0-46.0); Hemoglobin 9.2 gm/dL (11.6-15.3); Lymph # (Auto) 2.3 th/mm3 (1.0-4.8); Lymph % (Auto) 37.2 % (9.0-44.0); Mean Corpuscular HGB Conc 33.7 % (32.0-36.0); Mean Corpuscular Hemoglobin 28.7 pg (27.0-34.0); Mean Corpuscular Volume 85.2 fL (80.0-100.0); Mean Platelet Volume 6.8 fL (7.0-11.0); Mono # (Auto) 0.6 th/mm3 (0.0-0.9); Mono % (Auto) 10.5 % (0.0-8.0); Neut % (Auto) 50.2 % (16.0-70.0); Platelet Count 186 th/mm3 (150-450); Red Blood Count 3.18 mil/mm3 (4.00-5.30); Red Cell Distribution Width 12.6 % (11.6-17.2); White Blood Count 6.1 th/mm3 (4.0-11.0)
[2018-08-12 09:16] LABS: Anion Gap 7 meq/L (5-15); Blood Urea Nitrogen 16 mg/dL (7-18); Calcium 8.2 mg/dL (8.5-10.1); Carbon Dioxide 27.7 meq/L (21.0-32.0); Chloride 104 meq/L (98-107); Glomerular Filtration Rate Greater Than 89 mL/min (>89); Glucose,Random 88 mg/dL (74-106); Potassium 3.2 meq/L (3.5-5.1); Sodium 139 meq/L (136-145)
--- NOTE | 2018-08-12 10:40 | P.PNFP ---
Subjective Interval history: Patient seen and examined this morning. Reports increased left side pain. She notes that she is had increased pain since she has moved to her new bed. Denies any blood in urine. Reports increased frequency. Continued abdominal pain on left side. No change in color or smell. Denies nausea, vomiting, fever, chills. No other complaints today. <ChristyWaqas - 08/12/18 10:40> Results - Labs Result diagrams: 08/12/18 08:14 08/12/18 08:14 <Gerson Ugarte - 08/12/18 14:37> Abnormal lab results 08/12/18 08/12/18 Range/Units 08:14 08:14 RBC 3.18 L (4.00-5.30) mil/mm3 Hgb 9.2 L (11.6-15.3) gm/dL Hct 27.1 L (35.0-46.0) % MPV 6.8 L (7.0-11.0) fL [place] % (Auto) 10.5 H (0.0-8.0) % Potassium 3.2 L (3.5-5.1) meq/L Creatinine 0.43 L (0.50-1.00) mg/dL Calcium 8.2 L (8.5-10.1) mg/dL Short CBC 08/12/18 Range/Units 08:14 WBC 6.1 (4.0-11.0) th/mm3 Hgb 9.2 L (11.6-15.3) gm/dL Hct 27.1 L (35.0-46.0) % Plt Count 186 (150-450) th/mm3 [facility] 08/12/18 08:14 Sodium 139 Potassium 3.2 L Chloride 104 Carbon Dioxide 27.7 BUN 16 Creatinine 0.43 L Calcium 8.2 L <Gerson Ugarte - 08/12/18 14:37> Abnormal lab results 08/12/18 08/12/18 Range/Units 08:14 08:14 RBC 3.18 L (4.00-5.30) mil/mm3 Hgb 9.2 L (11.6-15.3) gm/dL Hct 27.1 L (35.0-46.0) % MPV 6.8 L (7.0-11.0) fL [place] % (Auto) 10.5 H (0.0-8.0) % Potassium 3.2 L (3.5-5.1) meq/L Creatinine 0.43 L (0.50-1.00) mg/dL Calcium 8.2 L (8.5-10.1) mg/dL Short CBC 08/12/18 Range/Units 08:14 WBC 6.1 (4.0-11.0) th/mm3 Hgb 9.2 L (11.6-15.3) gm/dL Hct 27.1 L (35.0-46.0) % Plt Count 186 (150-450) th/mm3 BMP 08/12/18 08:14 Sodium 139 Potassium 3.2 L Chloride 104 Carbon Dioxide 27.7 BUN 16 Creatinine 0.43 L Calcium 8.2 L <Jordi Harrison - 08/12/18 10:40> Physical Exam Vital signs: Vital Signs 08/11/18 17:30 08/11/18 20:00 08/11/18 21:47 Temperature 97.5 F L 98.1 F Pulse Rate 91 H 85 Respiratory Rate 16 18 16 Blood Pressure 124/65 127/65 Pulse Oximetry 96 97 08/12/18 00:00 08/12/18 02:53 08/12/18 08:00 Temperature 98.1 F 97.8 F Pulse Rate 85 100 H Respiratory Rate 17 20 16 Blood Pressure 109/58 L 109/60 Pulse Oximetry 96 98 08/12/18 12:00 Temperature 97.7 F Pulse Rate 80 Respiratory Rate 16 Blood Pressure 116/65 Pulse Oximetry 96 Intake & Output 08/11/18 08/12/18 08/12/18 18:59 06:59 18:59 Intake Total 200 / 200 100 / 100 Output Total 350 / 350 Balance 200 / 200 -250 / -250 Weight 52 kg 52.4 kg Intake: IV 200 / 200 100 / 100 Cipro 400 MG/200 ML Inj 400 mg 200 / 200 In 200 ml @ 200 mls/hr IV.SIG Q12H PRIYA Rx#:[id number] INVanz Inj 1,000 MG In NS Inj 100 / 100 100 ML @ 200 mls/hr IV.SIG Q24H PRIYA Rx#:[id number] Oral 0 / 0 Output: Urine 350 / 350 Other: # Voids 1 Date of Last Bowel Movement 08/07/18 08/11/18 <Gerson Ugarte - 08/12/18 14:37> Vital Signs 08/11/18 12:00 08/11/18 17:30 08/11/18 20:00 Temperature 98.7 F 97.5 F L 98.1 F Pulse Rate 97 H 91 H 85 Respiratory Rate 16 16 18 Blood Pressure 115/58 L 124/65 127/65 Pulse Oximetry 97 96 97 08/11/18 21:47 08/12/18 00:00 08/12/18 02:53 Temperature 98.1 F Pulse Rate 85 Respiratory Rate 16 17 20 Blood Pressure 109/58 L Pulse Oximetry 96 08/12/18 08:00 Temperature 97.8 F Pulse Rate 100 H Respiratory Rate 16 Blood Pressure 109/60 Pulse Oximetry 98 Intake & Output 08/11/18 08/12/18 08/12/18 18:59 06:59 18:59 Intake Total 200 / 200 100 / 100 Output Total 350 / 350 Balance 200 / 200 -250 / -250 Weight 52 kg 52.4 kg Intake: IV 200 / 200 100 / 100 Cipro 400 MG/200 ML Inj 400 mg 200 / 200 In 200 ml @ 200 mls/hr IV.SIG Q12H PRIYA Rx#:[id number] INVanz Inj 1,000 MG In NS Inj 100 / 100 100 ML @ 200 mls/hr IV.SIG Q24H PRIYA Rx#:[id number] Oral 0 / 0 Output: Urine 350 / 350 Other: # Voids 1 Date of Last Bowel Movement 08/07/18 08/11/18 <Jordi Harrison - 08/12/18 10:40> Narrative: General: Well-developed, alert, and in no acute distress. Appears stated age HEENT: Atraumatic, PERRL, non-icteric sclera and no conjunctival injection, moist mucous membranes Neck: Supple, non-tender without masses or lymphadenopathy, trachea midline Cardiac: Regular rate and rhythm without murmurs or gallops Pulmonary: Non-labored breathing. Lungs clear to auscultation bilaterally with good air movement Abdomen: Normal bowel sounds, soft, tenderness to palpation over the left lower quadrant. No rebound or guarding. Left-sided CVA tenderness. 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 She is now status post cystoscopy and left ureteral stent placement. Obstructing ureteral calculus and status post stent placement -Stent placement 08/10/18 -To have lithotripsy 08/12/18 -[place] pain scale with morphine for breakthrough pain -Continue Flomax Urinary tract infection: She has a history of ESBL UTI on 07/05. We spoke extensively about the implications of this. Her current culture has not yet grown. Consult to infectious disease, Continue ciprofloxacin and add ertapenem per infectious disease Contact precautions Urine showed mixed macarena, second culture no growth to date History of migraines -Victor Hugotriptan as needed for symptomatic control Fluids: Adequate p.o. intake Electrolytes: monitor and replete as needed Nutrition: Regular diet GI prophylaxis: not indicated VTE prophylaxis: Early ambulation <Jordi Harrison - 08/12/18 10:40> - Attending Attestation See the residents documentation for details. I saw and evaluated the patient regarding the kelsey portions of this evaluation and agree with the residents findings and plans as written. Parts of this note were created using [employer] voice recognition software program. While efforts were made to correct any mistakes made by this software, some mistakes, errors, and omissions may remain in the final note that were not caught when the note was originally created. Plan of care was discussed and agreed upon with the patient as specifically documented in the above note. An opportunity to ask questions with explanation was provided. Patient voiced understanding on all information reviewed and discussed. 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
[2018-08-12] MEDS: Belladonna Alkaloid/Opium 60 MG Supp RECTAL PRN (11:13)
[2018-08-12] MEDS ORDERED: Sodium Chlor 0.9% Inj 500 ML IV.CONT ONE (15:15)
[2018-08-12] MEDS ORDERED: Metoprolol Tartrate 25 MG Tablet PO ONE (15:15)
[2018-08-12] MEDS ORDERED: Chlorhexidine Gluconate 2% 1 Pack (2 Cloths) TOPICAL ONE (15:15)
--- NOTE | 2018-08-12 15:49 | P.OP ---
- Preoperative Diagnosis (1) Hydronephrosis with urinary obstruction due to ureteral calculus - Postoperative Diagnosis (1) Hydronephrosis with urinary obstruction due to ureteral calculus Date of procedure: 08/12/18 Procedure: Left extracorporeal shockwave lithotripsy Anesthesia: MAC Surgeon: Idris Garcia DO Estimated blood loss (mL): 0 Pathology: none sent Operation and Findings: 53-year-old female with a history of a 4 mm left ureteral calculus with hydronephrosis. Patient underwent cystoscopy left double-J stent earlier this week. Decision made for the patient undergo left extracorporeal shockwave lithotripsy. Risk and benefits were discussed preoperatively and she is willing to proceed. The patient was brought to the operating room and identified by myself as Natalie Meeks. She was placed on the operating table in the supine position, received preprocedure antibiotics and MAC anesthesia was administered. Under fluoroscopic image guidance the stone was visualized along the stent near the L3 process. As well therapy commenced with the patient receiving a total of 2200 shocks with good fragmentation visualized under fluoroscopy. The power level was at 4. The patient tolerated the procedure well and was awoken and extubated transferred recovery in stable condition. She will follow-up in a few weeks to undergo cystoscopy with left double-J stent pull.
[2018-08-12] MEDS ORDERED: HYDROmorphone PF Inj 1 MG/ML Ampul IV.PUSH PRN (16:40)
[2018-08-13 08:23] LABS: Baso % (Auto) 0.1 % (0.0-2.0); Eos % (Auto) 0.4 % (0.0-4.0); Hematocrit 28.1 % (35.0-46.0); Hemoglobin 9.7 gm/dL (11.6-15.3); Lymph # (Auto) 1.2 th/mm3 (1.0-4.8); Lymph % (Auto) 20.6 % (9.0-44.0); Mean Corpuscular HGB Conc 34.5 % (32.0-36.0); Mean Corpuscular Hemoglobin 28.9 pg (27.0-34.0); Mean Corpuscular Volume 83.8 fL (80.0-100.0); Mean Platelet Volume 6.9 fL (7.0-11.0); Mono # (Auto) 0.6 th/mm3 (0.0-0.9); Mono % (Auto) 10.6 % (0.0-8.0); Neut % (Auto) 68.3 % (16.0-70.0); Platelet Count 245 th/mm3 (150-450); Red Blood Count 3.35 mil/mm3 (4.00-5.30); Red Cell Distribution Width 12.6 % (11.6-17.2); White Blood Count 5.8 th/mm3 (4.0-11.0)
[2018-08-13 08:33] VITALS: TEMP 97.8
[2018-08-13 08:52] LABS: Anion Gap 5 meq/L (5-15); Blood Urea Nitrogen 14 mg/dL (7-18); Calcium 8.3 mg/dL (8.5-10.1); Carbon Dioxide 28.6 meq/L (21.0-32.0); Chloride 102 meq/L (98-107); Glomerular Filtration Rate Greater Than 89 mL/min (>89); Glucose,Random 91 mg/dL (74-106); Potassium 3.6 meq/L (3.5-5.1); Sodium 136 meq/L (136-145)
[2018-08-13] MEDS: Ciprofloxacin 500 MG Tablet PO SCH (09:40)
[2018-08-13] MEDS: Senna/Docusate Sodium 8.6/50 MG Tablet PO SCH (09:41)
--- NOTE | 2018-08-13 10:51 | P.PNFP ---
Subjective Interval history: Patient seen and examined this morning. Reports her pain is significantly improved today. Still notes some mild discomfort in her left abdomen and back. Denies any blood in urine. Reports increased frequency. No change in color or smell. Denies nausea, vomiting, fever, chills. No other complaints today. <Jordi Harrison - 08/13/18 10:51> Results - Labs Result diagrams: 08/13/18 06:43 08/13/18 06:43 <Gerson Ugarte - 08/13/18 14:03> Abnormal lab results 08/13/18 08/13/18 Range/Units 06:43 06:43 RBC 3.35 L (4.00-5.30) mil/mm3 Hgb 9.7 L (11.6-15.3) gm/dL Hct 28.1 L (35.0-46.0) % MPV 6.9 L (7.0-11.0) fL [place] % (Auto) 10.6 H (0.0-8.0) % Creatinine 0.41 L (0.50-1.00) mg/dL Calcium 8.3 L (8.5-10.1) mg/dL Short CBC 08/13/18 Range/Units 06:43 WBC 5.8 (4.0-11.0) th/mm3 Hgb 9.7 L (11.6-15.3) gm/dL Hct 28.1 L (35.0-46.0) % Plt Count 245 D (150-450) th/mm3 [facility] 08/13/18 06:43 Sodium 136 Potassium 3.6 Chloride 102 Carbon Dioxide 28.6 BUN 14 Creatinine 0.41 L Calcium 8.3 L <Gerson Ugarte - 08/13/18 14:03> Abnormal lab results 08/13/18 08/13/18 Range/Units 06:43 06:43 RBC 3.35 L (4.00-5.30) mil/mm3 Hgb 9.7 L (11.6-15.3) gm/dL Hct 28.1 L (35.0-46.0) % MPV 6.9 L (7.0-11.0) fL [place] % (Auto) 10.6 H (0.0-8.0) % Creatinine 0.41 L (0.50-1.00) mg/dL Calcium 8.3 L (8.5-10.1) mg/dL Short CBC 08/13/18 Range/Units 06:43 WBC 5.8 (4.0-11.0) th/mm3 Hgb 9.7 L (11.6-15.3) gm/dL Hct 28.1 L (35.0-46.0) % Plt Count 245 D (150-450) th/mm3 [facility] 08/13/18 06:43 Sodium 136 Potassium 3.6 Chloride 102 Carbon Dioxide 28.6 BUN 14 Creatinine 0.41 L Calcium 8.3 L <Jordi Harrison - 08/13/18 10:51> Physical Exam Vital signs: Vital Signs 08/12/18 15:46 08/12/18 16:00 08/12/18 16:16 Temperature 98.4 F 97.7 F Pulse Rate 96 H 72 76 Respiratory Rate 14 16 14 Blood Pressure 114/66 97/56 L 102/56 L Pulse Oximetry 96 96 94 L 08/12/18 20:00 08/13/18 00:00 08/13/18 08:00 Temperature 97.4 F L 98.1 F 97.8 F Pulse Rate 77 80 80 Respiratory Rate 18 18 17 Blood Pressure 112/57 L 101/59 L 115/61 Pulse Oximetry 96 95 95 08/13/18 12:00 Temperature 97.8 F Pulse Rate 86 Respiratory Rate 17 Blood Pressure 122/64 Pulse Oximetry 97 Intake & Output 08/12/18 08/13/18 08/13/18 18:59 06:59 18:59 Intake Total 500 / 500 380 / 380 Output Total 800 / 800 600 / 600 150 / 150 Balance -300 / -300 -220 / -220 -150 / -150 Intake: IV 100 / 100 INVanz Inj 1,000 MG In NS Inj 100 / 100 100 ML @ 200 mls/hr IV.SIG Q24H PRIYA Rx#:[id number] Oral 380 / 380 Anesthesia Amount 400 / 400 Output: Urine 800 / 800 600 / 600 150 / 150 Other: # Voids 4 Date of Last Bowel Movement 08/11/18 <Gerson Ugarte - 08/13/18 14:03> Vital Signs 08/12/18 12:00 08/12/18 15:46 08/12/18 16:00 Temperature 97.7 F 98.4 F 97.7 F Pulse Rate 80 96 H 72 Respiratory Rate 16 14 16 Blood Pressure 116/65 114/66 97/56 L Pulse Oximetry 96 96 96 08/12/18 16:16 08/12/18 20:00 08/13/18 00:00 Temperature 97.4 F L 98.1 F Pulse Rate 76 77 80 Respiratory Rate 14 18 18 Blood Pressure 102/56 L 112/57 L 101/59 L Pulse Oximetry 94 L 96 95 08/13/18 08:00 Temperature 97.8 F Pulse Rate 80 Respiratory Rate 17 Blood Pressure 115/61 Pulse Oximetry 95 Intake & Output 08/12/18 08/13/18 08/13/18 18:59 06:59 18:59 Intake Total 500 / 500 380 / 380 Output Total 800 / 800 600 / 600 150 / 150 Balance -300 / -300 -220 / -220 -150 / -150 Intake: IV 100 / 100 INVanz Inj 1,000 MG In NS Inj 100 / 100 100 ML @ 200 mls/hr IV.SIG Q24H PRIYA Rx#:[id number] Oral 380 / 380 Anesthesia Amount 400 / 400 Output: Urine 800 / 800 600 / 600 150 / 150 Other: # Voids 4 Date of Last Bowel Movement 08/11/18 <Jordi Harrison - 08/13/18 10:51> Narrative: General: Well-developed, alert, and in no acute distress. Appears stated age HEENT: Atraumatic, PERRL, non-icteric sclera and no conjunctival injection, moist mucous membranes Neck: Supple, non-tender without masses or lymphadenopathy, trachea midline Cardiac: Regular rate and rhythm without murmurs or gallops Pulmonary: Non-labored breathing. Lungs clear to auscultation bilaterally with good air movement Abdomen: Normal bowel sounds, soft, tenderness to deep palpation over the left lower quadrant. No rebound or guarding. Improved left-sided CVA tenderness. 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 She is now status post cystoscopy and left ureteral stent placement. Obstructing ureteral calculus and status post stent placement -Stent placement 08/10/18, lithotripsy 08/12/18 -[place] pain scale with morphine for breakthrough pain -Continue Flomax Urinary tract infection: She has a history of ESBL UTI on 07/05. Consult to infectious disease, ciprofloxacin and ertapenem per infectious disease -F/U ID recommendations based on recent cultures Contact precautions Urine showed mixed macarena, second culture no growth to date History of migraines -Rizatriptan as needed for symptomatic control Fluids: Adequate p.o. intake Electrolytes: monitor and replete as needed Nutrition: Regular diet GI prophylaxis: not indicated VTE prophylaxis: Early ambulation <Jordi Harrison - 08/13/18 10:51> - Attending Attestation See the residents documentation for details. I saw and evaluated the patient regarding the kelsey portions of this evaluation and agree with the residents findings and plans as written. Parts of this note were created using [employer] voice recognition software program. While efforts were made to correct any mistakes made by this software, some mistakes, errors, and omissions may remain in the final note that were not caught when the note was originally created. Plan of care was discussed and agreed upon with the patient as specifically documented in the above note. An opportunity to ask questions with explanation was provided. Patient voiced understanding on all information reviewed and discussed. 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
[2018-08-13] MEDS: Belladonna Alkaloid/Opium 60 MG Supp RECTAL PRN (12:19)
[2018-08-13 16:47] VITALS: BP 127/60; PULSE 82; RESP 16; O2SAT 96
== END 2018-08-13 17:12 | disposition home or self-care (01) ==
LOC: NEDA 09:08 → NEPC 09:08 → NEPGCP 14:51 → N07 08-11 17:19
PROVIDERS: ADMIT Family Medicine; ATTEND Family Medicine
PROC: ESWLBIL (2018-08-12 14:41)